=== PATIENT | female | born 1935 | race Two or more races ===

== ENCOUNTER 2016-06-12 20:45 | Inpatient (IN) | payer MEDICARE, MEDICAID ==
[~2016-06-12] VITALS: Ht 153 cm; Wt 52.2 kg
--- NOTE | 2016-06-12 20:53 | Emergency Room Report ---
History of Present Illness General Chief Complaint: Generalized Weakness Source: Patient, EMS Present Illness HPI The patient presents with generalized weakness. She was seen by her doctor yesterday with hematuria. He wanted her to go to the hospital at that time. She did have a fevers and chills. She refused to the hospital. No antibiotics were prescribed. The patient has more weakness at this time and is agreeable to go to the hospital. She denies any vomiting or diarrhea. She's had no cough, no rashes. No joint pain. No trauma. No depression. Some L sided headache. No change in vision. Pain 10/10, aching, not radiate, constant. She does not take any medications at home. Allergies: Coded Allergies: No Known Allergies (Unverified , 06/12/16) Patient History Past Medical History: see triage record Social History Narrative from home Now: No Reviewed Nursing Documentation: PMH: Agreed, PSxH: Agreed Nursing Documentation-PMH Past Medical History: No Stated History Review of Systems All Other Systems: negative except mentioned in HPI Physical Exam Vital Signs Date Time Temp Pulse Resp B/P Pulse Ox O2 Delivery O2 Flow Rate FiO2 06/12/16 20:40 99.9 102 16 115/66 96 Room Air Sp02 EP Interpretation: reviewed, normal General Appearance: well appearing, no apparent distress, alert - eyes closed but follows commands and speech normal (GCS = 14), other - hot to touch Head: normocephalic Eyes: bilateral eye EOMI, bilateral eye PERRL, bilateral eye normal inspection ENT: moist mucus membranes Neck: supple Respiratory: lungs clear, normal breath sounds Cardiovascular #1: regular rate, rhythm Cardiovascular #2: 2+ radial (R) Gastrointestinal: normal inspection, normal bowel sounds, non tender, no mass, non-distended Genitourinary: no CVA tenderness Musculoskeletal: back normal, gait/station normal, normal range of motion Neurologic: alert, oriented x3, motor strength/tone normal, DTRs symmetric, sensory intact, other - eyes closed Psychiatric: mood/affect normal Skin: normal inspection, warm/dry Medical Decision Making Diagnostic Impression: Primary Impression: sepsis from urinary source Additional Impressions: Hyponatremia Renal insufficiency ER Course The patient presents with fever weakness and hematuria. Differential includes pyelonephritis, UTI, renal stones, diverticulitis and was others. She has no upper respiratory symptomatology. The patient needs urgent evaluation and treatment for possible sepsis. Labs including blood culture, lactates, CBC and CMP we obtained. Young will be established. The patient Tylenol for the fever. In addition she was given a fluid bolus and antibiotics will be started. The fact that the patient is weak and unable to ambulate she is admitted to the hospital. Improved with fluids and fever control. C/O SHELLEY. Non-focal neuro. C/O headache L sided (states several days). Treated with fentanyl with improvement. Sodium low. Leukocytosis and pyuria. Renal insufficiency, Admit med Dr. Hauser. Laboratory Tests Test 06/12/16 21:00 06/12/16 21:15 White Blood Count 25.2 K/UL (4.8-10.8) *H Red Blood Count 3.86 M/UL (4.20-5.40) L Hemoglobin 11.1 G/DL (12.0-16.0) L Hematocrit 33.2 % (37.0-47.0) L Mean Corpuscular Volume 86 FL (80-99) Mean Corpuscular Hemoglobin 28.9 PG (27.0-31.0) Mean Corpuscular Hemoglobin Concent 33.5 G/DL (32.0-36.0) Red Cell Distribution Width 12.1 % (11.6-14.8) Platelet Count 261 K/UL (150-450) Mean Platelet Volume 6.2 FL (6.5-10.1) L Neutrophils (%) (Auto) % (45.0-75.0) Lymphocytes (%) (Auto) % (20.0-45.0) Monocytes (%) (Auto) % (1.0-10.0) Eosinophils (%) (Auto) % (0.0-3.0) Basophils (%) (Auto) % (0.0-2.0) Differential Total Cells Counted 100 Neutrophils % (Manual) 74 % (45-75) Lymphocytes % (Manual) 7 % (20-45) L Monocytes % (Manual) 10 % (1-10) Eosinophils % (Manual) 0 % (0-3) Basophils % (Manual) 0 % (0-2) Band Neutrophils 9 % (0-8) H Platelet Estimate Adequate Platelet Morphology Normal Red Blood Cell Morphology Normal Prothrombin Time 10.7 SEC (9.30-11.50) Prothrombin Time INR 1.1 (0.9-1.1) PTT 33 SEC (23-33) Sodium Level 123 mEQ/L (135-145) L Potassium Level 3.2 mEQ/L (3.4-4.9) L Chloride Level 83 mEQ/L (98-107) L Carbon Dioxide Level 19 mEQ/L (20-30) L Anion Gap 21 (5-15) H Blood Urea Nitrogen 25 mg/dL (7-23) H Creatinine 1.3 mg/dL (0.5-0.9) H Estimate Glomerular Filtration Rate mL/min (>60) Glucose Level 129 mg/dL (74-106) H Lactic Acid Level 0.90 mmol/L (0.66-2.22) Calcium Level 8.7 mg/dL (8.6-10.2) Total Bilirubin 0.4 mg/dL (0.0-1.2) Aspartate Amino Transferase (AST) 24 U/L (5-40) Alanine Aminotransferase (ALT) 14 U/L (3-33) Alkaline Phosphatase 212 U/L (35-104) H Total Creatine Kinase 37 U/L (26-140) Troponin I < 0.30 ng/mL (<=0.30) Pro-B-Type Natriuretic Peptide 1406 pg/mL (0-450) H Total Protein 6.5 g/dL (6.6-8.7) L Albumin 2.9 g/dL (3.5-5.2) L Globulin 3.6 g/dL Albumin/Globulin Ratio 0.8 (1.0-2.7) L Urine Color Pale yellow Urine Appearance Slightly cloudy Urine pH 6 (4.5-8.0) Urine Specific [place] 1.005 (1.005-1.035) Urine Protein 3+ (NEGATIVE) H Urine Glucose (UA) Negative (NEGATIVE) Urine Ketones 1+ (NEGATIVE) H Urine Occult Blood 4+ (NEGATIVE) H Urine Nitrite Negative (NEGATIVE) Urine Bilirubin Negative (NEGATIVE) Urine Urobilinogen Normal MG/DL (0.0-1.0) Urine Leukocyte Esterase 3+ (NEGATIVE) H Urine RBC 2-4 /HPF (0 - 2) H Urine WBC Tntc /HPF (0 - 2) H Urine Squamous Epithelial Cells None /LPF (NONE/OCC) Urine Bacteria Many /HPF (NONE) H EKG Diagnostic Results Rate: normal Rhythm: NSR ST Segments: no acute changes Rhythm Strip Diag. Results EP Interpretation: yes Rhythm: NSR, no PVC's, no ectopy Chest X-Ray Diagnostic Results EP Interpretation: Yes Findings: no consolidation, no effusion, no pneumothorax, no acute cardiopulmonary disease Number of Views: 1 Last Vital Signs Date Time Temp Pulse Resp B/P Pulse Ox O2 Delivery O2 Flow Rate FiO2 06/13/16 04:00 97.3 67 19 87/52 97 Room Air 06/13/16 01:25 2.0 Status: improved Disposition: ADMITTED INPATIENT Condition: Serious Michael Vázquez M.D. Jun 12, 2016 20:52
[2016-06-12] MEDS ORDERED: Cefepime HCl 1 GM in NS 55 ML IV SCH (21:00)
[2016-06-12] MEDS ORDERED: NS 1000ml 1,600 ML IVLG ONE (21:00)
[2016-06-12 21:23] LABS: MEAN CORPUSCULAR HEMOGLOBIN 28.9 PG (27.0-31.0); MEAN CORPUSCULAR HGB CONC 33.5 G/DL (32.0-36.0); MEAN CORPUSCULAR VOLUME 86 FL (80-99); MEAN PLATELET VOLUME 6.2 FL (6.5-10.1); PLATELET COUNT 261 K/UL (150-450); RED BLOOD COUNT 3.86 M/UL (4.20-5.40); RED CELL DISTRIBUTION WIDTH 12.1 % (11.6-14.8)
[2016-06-12] MEDS ORDERED: Zosyn 4.5gm inj ONE (21:23)
[2016-06-12] MEDS ORDERED: Cefepime 1gm vial ONE (21:24)
[2016-06-12 21:29] LABS: WHITE BLOOD COUNT 25.2 K/UL (4.8-10.8)
[2016-06-12 21:32] LABS: APPEARANCE,URINE SLIGHTLY CLOUDY; KETONES,URINE 1+ (NEGATIVE); LEUKOCYTE ESTERASE ,URINE 3+ (NEGATIVE); NITRITE,URINE NEGATIVE (NEGATIVE); PH,URINE 6 (4.5-8.0); PROTEIN,URINE 3+ (NEGATIVE); UROBILINOGEN,URINE NORMAL MG/DL (0.0-1.0)
[2016-06-12 21:36] LABS: INR 1.1 (0.9-1.1); PROTHROMBIN TIME 10.7 SEC (9.30-11.50)
[2016-06-12 21:40] LABS: BACTERIA,URINE MANY /HPF; WBC,URINE TNTC /HPF (0 - 2)
[2016-06-12 21:45] LABS: ALANINE AMINOTRANSFERASE 14 U/L (3-33); ALBUMIN/GLOBULIN RATIO 0.8 (1.0-2.7); ASPARTATE AMINO TRANSFERASE 24 U/L (5-40); CALCIUM 8.7 mg/dL (8.6-10.2); CARBON DIOXIDE 19 mEQ/L (20-30); CREATININE 1.3 mg/dL (0.5-0.9); HEMOLYSIS 3; TOTAL PROTEIN 6.5 g/dL (6.6-8.7)
[2016-06-12 21:46] LABS: ANION GAP 21 (5-15); CHLORIDE 83 mEQ/L (98-107); POTASSIUM 3.2 mEQ/L (3.4-4.9); SODIUM 123 mEQ/L (135-145)
[2016-06-12] MEDS ORDERED: Piperacillin/Tazobactam 4.5 GM in NS 110 ML IV SCH (22:00)
[2016-06-12 22:19] LABS: BAND NEUTROPHILS % (MANUAL) 9 % (0-8); LYMPHOCYTES % (MANUAL) 7 % (20-45); NEUTROPHILS % (MANUAL) 74 % (45-75); TOTAL CELLS COUNTED 100
[2016-06-12 22:21] LABS: BASOPHILS % (MANUAL) 0 % (0-2); EOSINOPHILS % (MANUAL) 0 % (0-3); PLATELET ESTIMATE ADEQUATE
[2016-06-12 22:22] LABS: PLATELET MORPHOLOGY NORMAL
[2016-06-12 22:27] VITALS: BP 108/48
[2016-06-12] MEDS ORDERED: fentaNYL 100 mcg/2 mL IV ONE (22:30)
[2016-06-12 22:55] LABS: TROPONIN I < 0.30 ng/mL (<=0.30)
[2016-06-12 23:37] VITALS: BP 88/48
[2016-06-12] MEDS ORDERED: TYLENOL650 MG/20. ORAL (23:58)
[2016-06-12] MEDS ORDERED: EXCEDRIN MIGRA1 EAC1 PO (23:58)
[2016-06-13] VITALS (7 sets, daily range): BP systolic 85–120; BP diastolic 50–70
[2016-06-13] MEDS ORDERED: DuoNeb 0.5-3(2.5)mg/3ml neb HHN PRN (07:00)
[2016-06-13] MEDS ORDERED: Miralax 17gm pkt ORAL PRN (07:00)
[2016-06-13] MEDS ORDERED: Nitroglycerin Subl 0.4mg tab (Bottle Of 25) SL PRN (07:00)
[2016-06-13] MEDS ORDERED: Cefepime HCl 2 GM in D5W 110 ML IV SCH (09:00)
[2016-06-13] MEDS ORDERED: Vancomycin 1 GM in D5W 275 ML IVPB ONE (09:00)
[2016-06-13] MEDS: Heparin 5000 units/ml inj SUBQ SCH ×2 (09:42→21:56)
--- NOTE | 2016-06-13 10:08 | Diagnostic Imaging Report ---
Indication: Shortness of breath Technique: XRAY CHEST 1 V Comparison: None Findings: Cardiomediastinal silhouette is within normal limits. Linear opacities are noted in the lung bases. There is mild elevation of the right hemidiaphragm. Degenerative changes of the spine are seen. Impression: Mild elevation of right hemidiaphragm. Linear lung base opacities probably representing atelectasis. Clinical correlation/followup recommended.
[2016-06-13 10:25] LABS: THYROID STIMULATING HORMONE 0.675 uIU/mL (0.300-4.500)
[2016-06-13 10:49] LABS: FREE T3 1.2 pg/mL (2.3-4.2)
--- NOTE | 2016-06-13 11:55 | Consultation ---
History of Present Illness General Date patient seen: Jun 13, 2016 Time patient seen: 11:00 Chief Complaint: Generalized Weakness Referring physician: dr Hauser Reason for Consultation: medical management Present Illness HPI 80 y/old female presented with generalized weakness. She was seen by her doctor with hematuria, who advised her to go to the hospital, but the patient refused.. Reported subjective fevers /chills. No antibiotics were prescribed. The patient progressively became more weak ad decided to come to ED for evalaution in ED with low grade fever, mild tachycardia pulse oximetry stable on RA Lab work up in ED revealed leukocytosis -25.2, alctic acid WNL renal insufficiency 25/1.3 Na-123 K-3,2 pro BNP 1406 CXR Mild elevation of right hemidiaphragm. Linear lung base opacities probably representing atelectasis. ECG with NSR patient was admitted for further management Allergies: Coded Allergies: No Known Allergies (Unverified , 06/12/16) Medication History Scheduled PRN Acetaminophen (Acetaminophen), 650 MG ORAL Q6H PRN for Prn Headache/Temp > 101, (Reported) Miscellaneous Medications Aspirin/Acetaminophen/Caffeine (Excedrin Migraine Caplet), 1 EACH PO, (Reported) Patient History Healthcare decision maker Resuscitation status Full Code Advanced Directive on File Past Medical/Surgical History Past Medical/Surgical History: (1) Headache Review of Systems Constitutional: Reports: fever, weakness Eye: Reports: no symptoms ENT: Reports: no symptoms Respiratory: Reports: no symptoms Cardiovascular: Reports: no symptoms Gastrointestinal: Reports: abdominal pain Genitourinary: Reports: see HPI Musculoskeletal: Reports: no symptoms Skin: Reports: no symptoms Psychiatric: Reports: no symptoms Neurological: Reports: headache Endocrine: Reports: no symptoms Hematologic/Lymphatic: Reports: no symptoms Physical Exam General Appearance: no apparent distress, alert - awake, responsive, [place] Citizen speaking female Lines, tubes and drains: peripheral HEENT: normocephalic, atraumatic, anicteric Neck: non-tender, supple Respiratory/Chest: lungs clear, no respiratory distress, no accessory muscle use Cardiovascular/Chest: normal rate, regular rhythm, no JVD Abdomen: normal bowel sounds, non tender, soft Skin Exam: warm/dry Neurologic: no motor/sensory deficits, alert, responsive, normal mood/affect Musculoskeletal: atrophy - BLE Last 24 Hour Vital Signs Date Time Temp Pulse Resp B/P Pulse Ox O2 Delivery O2 Flow Rate FiO2 06/13/16 10:40 97.3 06/13/16 04:00 97.3 67 19 87/52 97 Room Air 06/13/16 02:01 97.3 69 19 85/53 98 Nasal Cannula 06/13/16 01:25 98.6 70 19 92/50 97 Nasal Cannula 2.0 06/13/16 01:01 98.6 70 19 92/50 97 Nasal Cannula 2.0 06/12/16 23:37 99.2 79 20 88/48 97 Nasal Cannula 2.0 06/12/16 23:14 99.2 06/12/16 22:27 99.4 89 19 108/48 97 Room Air 06/12/16 22:24 99.4 06/12/16 21:08 100.6 06/12/16 20:40 99.9 102 16 115/66 96 Room Air Intake and Output 06/12/16 06/13/16 19:00 07:00 Intake Total 2765 ml Output Total 150 ml Balance 2615 ml Intake IV Total 2765 ml Output Urine Total 150 ml Laboratory Tests Test 06/12/16 21:00 06/12/16 21:15 06/13/16 08:50 White Blood Count 25.2 K/UL (4.8-10.8) *H Red Blood Count 3.86 M/UL (4.20-5.40) L Hemoglobin 11.1 G/DL (12.0-16.0) L Hematocrit 33.2 % (37.0-47.0) L Mean Corpuscular Volume 86 FL (80-99) Mean Corpuscular Hemoglobin 28.9 PG (27.0-31.0) Mean Corpuscular Hemoglobin Concent 33.5 G/DL (32.0-36.0) Red Cell Distribution Width 12.1 % (11.6-14.8) Platelet Count 261 K/UL (150-450) Mean Platelet Volume 6.2 FL (6.5-10.1) L Neutrophils (%) (Auto) % (45.0-75.0) Lymphocytes (%) (Auto) % (20.0-45.0) Monocytes (%) (Auto) % (1.0-10.0) Eosinophils (%) (Auto) % (0.0-3.0) Basophils (%) (Auto) % (0.0-2.0) Differential Total Cells Counted 100 Neutrophils % (Manual) 74 % (45-75) Lymphocytes % (Manual) 7 % (20-45) L Monocytes % (Manual) 10 % (1-10) Eosinophils % (Manual) 0 % (0-3) Basophils % (Manual) 0 % (0-2) Band Neutrophils 9 % (0-8) H Platelet Estimate Adequate Platelet Morphology Normal Red Blood Cell Morphology Normal Prothrombin Time 10.7 SEC (9.30-11.50) Prothromb Time International Ratio 1.1 (0.9-1.1) Activated Partial Thromboplast Time 33 SEC (23-33) Sodium Level 123 mEQ/L (135-145) L Potassium Level 3.2 mEQ/L (3.4-4.9) L Chloride Level 83 mEQ/L (98-107) L Carbon Dioxide Level 19 mEQ/L (20-30) L Anion Gap 21 (5-15) H Blood Urea Nitrogen 25 mg/dL (7-23) H Creatinine 1.3 mg/dL (0.5-0.9) H Estimat Glomerular Filtration Rate mL/min (>60) Glucose Level 129 mg/dL (74-106) H Lactic Acid Level 0.90 mmol/L (0.66-2.22) Calcium Level 8.7 mg/dL (8.6-10.2) Total Bilirubin 0.4 mg/dL (0.0-1.2) Aspartate Amino Transf (AST/SGOT) 24 U/L (5-40) Alanine Aminotransferase (ALT/SGPT) 14 U/L (3-33) Alkaline Phosphatase 212 U/L (35-104) H Total Creatine Kinase 37 U/L (26-140) Troponin I < 0.30 ng/mL (<=0.30) Pro-B-Type Natriuretic Peptide 1406 pg/mL (0-450) H Total Protein 6.5 g/dL (6.6-8.7) L Albumin 2.9 g/dL (3.5-5.2) L Globulin 3.6 g/dL Albumin/Globulin Ratio 0.8 (1.0-2.7) L Urine Color Pale yellow Urine Appearance Slightly cloudy Urine pH 6 (4.5-8.0) Urine Specific [place] 1.005 (1.005-1.035) Urine Protein 3+ (NEGATIVE) H Urine Glucose (UA) Negative (NEGATIVE) Urine Ketones 1+ (NEGATIVE) H Urine Occult Blood 4+ (NEGATIVE) H Urine Nitrite Negative (NEGATIVE) Urine Bilirubin Negative (NEGATIVE) Urine Urobilinogen Normal MG/DL (0.0-1.0) Urine Leukocyte Esterase 3+ (NEGATIVE) H Urine RBC 2-4 /HPF (0 - 2) H Urine WBC Tntc /HPF (0 - 2) H Urine Squamous Epithelial Cells None /LPF (NONE/OCC) Urine Bacteria Many /HPF (NONE) H Plasma/Serum Osmolality Pending Uric Acid 4.0 mg/dL (3.0-7.5) Thyroid Stimulating Hormone (TSH) 0.675 uIU/mL (0.300-4.500) Free Thyroxine 1.13 ng/dL (0.86-1.85) Free Triiodothyronine 1.2 pg/mL (2.3-4.2) L Cortisol Pending Microbiology Date/Time Source Procedure Growth Status 06/12/16 21:15 Indwelling Cath Urine Culture - Preliminary Gram Negative Johnathon Resulted Height (Feet): 5 Height (Inches): 0.25 Weight (Pounds): 115 Medications Current Medications Medications (Trade) Dose Ordered Sig/Joseline Route PRN Reason Start Time Stop Time Status Last Admin Dose Admin Acetaminophen (Tylenol) 650 mg Q4H PRN ORAL fever 06/13/16 07:00 07/13/16 06:59 06/13/16 09:41 Albuterol/ Ipratropium (DuoNeb 0.5-3(2.5)mg/3ml) 3 ml Q4H PRN HHN Shortness of Breath 06/13/16 07:00 06/18/16 06:59 Cefepime HCl/ Dextrose (Maxipime/D5W) 55 ml @ 110 mls/hr Q24H IVPB 06/13/16 21:00 06/20/16 20:59 Heparin Sodium (Porcine) (Heparin 5000 units/ml) 5,000 units EVERY 12 HOURS SUBQ 06/13/16 09:00 07/13/16 08:59 06/13/16 09:42 Morphine Sulfate (Morphine Sulfate) 2 mg Q4H PRN IVP Moderate Pain (Pain Scale 4-6) 06/13/16 07:00 06/20/16 06:59 Nitroglycerin 0.4 mg 0.4 mg Q5M PRN SL Prn Chest Pain 06/13/16 07:00 07/13/16 06:59 Ondansetron HCl (Zofran) 4 mg Q6H PRN IVP Nausea & Vomiting 06/13/16 07:00 07/13/16 06:59 Polyethylene Glycol (Miralax) 17 gm DAILYPRN PRN ORAL Constipation 06/13/16 07:00 07/13/16 06:59 Potassium Chloride 20 meq/ Sodium Chloride 1,010 ml @ 50 mls/hr [id number] IV 06/13/16 08:00 07/13/16 07:59 06/13/16 08:29 Temazepam (Restoril) 15 mg HSPRN PRN ORAL Insomnia 06/13/16 07:00 06/20/16 06:59 Vancomycin HCl 1 ea 1 ea DAILY PRN MISC PER RX PROTOCOL 06/13/16 07:30 07/13/16 07:29 Vancomycin HCl/ Dextrose (Vancomycin/D5W) 110 ml @ 110 mls/hr Q24H IVPB 06/14/16 09:00 06/19/16 08:59 Assessment/Plan Assessment/Plan ASSESSMENT sepsis UTI acute renal failure /ATN ( possibly due to dehydartion, vs sepsis, likely prerenal) acute hypo Na hypokalemia hematuria mild anemia PLAN OF CARE [facility] floor IVF empiric abx fup with cx urine cx + GNR, blood cx pending no further hematuria hyponatremia workup IVF with NS, monitor renal parameters renal US K replaced , check Mg monitor HH, for any trend down DVT, GI prophylaxis bowel regimen pain management case discussed and evaluated by supervising physician Jose G Antoine)Elly NP Jun 13, 2016 11:55
[2016-06-13] MEDS ORDERED: NS w/KCl 20mEq 1,000 ML IV SCH (12:30)
[2016-06-13 13:53] LABS: ANION GAP 18 (5-15); CARBON DIOXIDE 16 mEQ/L (20-30); CHLORIDE 97 mEQ/L (98-107); CREATININE 1.1 mg/dL (0.5-0.9); SODIUM 131 mEQ/L (135-145)
[2016-06-13 13:54] LABS: CALCIUM 7.4 mg/dL (8.6-10.2); HEMOLYSIS 15
--- NOTE | 2016-06-13 14:34 | History & Physical ---
History and Physical History & Physicial Dictated for Int Med-Dr Hauser no [id number]. LEONOR CHRISTIANSON Jun 13, 2016 14:34
[2016-06-13] MEDS: Cefepime 1gm/D5W 55ml IVPB SCH ×2 (21:54)
--- NOTE | 2016-06-13 22:38 | History and Physical Report ---
DATE OF ADMISSION: 06/12/2016 ATTENDING PHYSICIAN: Mati Hauser M.D. CHIEF COMPLAINT: The patient is an 80-year-old female presents with complaint of burning on urination. HISTORY OF PRESENT ILLNESS: It began approximately one week ago. The patient began to experience pain on urination. The patient also states her urine had a foul odor. The patient went to her private physician yesterday, June 12, 2016. The patient was complaining of headache, fever and chills at that time. The patient was told to go to the emergency room. The patient refused to go to the hospital. Last evening, the patient began to experience high fevers. The patient presented to [facility]. The patient was found to have leukocytosis with urinary tract infection. The patient is admitted for urinary tract infection and probable pyelonephritis. PAST MEDICAL HISTORY: The patient denies. PAST SURGICAL HISTORY: The patient denies. CURRENT MEDICATIONS: [id number] Excedrin. ALLERGIES: No known drug allergies. SOCIAL HISTORY: The patient lives alone. The patient is a . The patient denies tobacco or alcohol use. PHYSICAL EXAMINATION: VITAL SIGNS: Temperature 99.2, respirations 20, pulse 79, and blood pressure decreased to 88/48. GENERAL: The patient is a well-developed and well-nourished elderly female, in no apparent distress. HEENT: Eyes, pupils are equal and responsive to light and accommodation. Extraocular movements are intact. NECK: Supple without lymphadenopathy. CHEST: Lungs are clear to auscultation bilaterally without wheezes or rales. CARDIOVASCULAR: Regular rhythm and rate. S1 and S2 normal without murmurs, rubs, or gallops. ABDOMEN: Soft, nontender, and nondistended. Positive bowel sounds. No evidence of hepatosplenomegaly. Currently, no rebound or guarding noted. EXTREMITIES: Negative for clubbing, cyanosis, or edema. RECTAL: Refused. GENITALIA: Refused. NEUROLOGIC: Cranial nerves II through XII are grossly intact without focal deficits. Motor strength is 5/5 bilaterally. Deep tendon reflexes are 2+ plantar. LABORATORY STUDIES: WBC 25.2, hemoglobin 11.1, hematocrit 32.2, and platelets 261,000. Sodium 131, potassium 3.0, chloride 97, CO2 16, BUN 19, and creatinine 1.1. Glucose 182. Urinalysis showed 3+ protein, 1+ ketones, 4+ occult blood, 3+ leukocyte esterase, and wbc's too numerous to count. ASSESSMENT: This is an 80-year-old, female: 1. Urinary tract infection. 2. Dysuria. 3. Pyelonephritis. 4. Leukocytosis. 5. Fever with chills. TREATMENT: 1. Urinary tract infection. The patient has been placed empirically on vancomycin and cefepime. Urine culture is pending. Urine culture preliminarily shows gram-negative adithya. Await ID and sensitivity. 2. Dysuria. This is secondary to urinary tract infection as above. 3. Leukocytosis secondary to pyelonephritis and urinary tract infection. 4. Fever with chills. 5. Hypotension. The patient has probable sepsis. Cruz Colby M.D. DR: ELIZABETH JOB#: [id number] CC:
[2016-06-14] VITALS: BP 121/63
[2016-06-14 04:00] VITALS: BP 120/53
[2016-06-14 07:35] LABS: BASOPHILS % (AUTO) 0.7 % (0.0-2.0); EOSINOPHILS % (AUTO) 0.3 % (0.0-3.0); LYMPHOCYTES % (AUTO) 8.5 % (20.0-45.0); MEAN CORPUSCULAR HEMOGLOBIN 28.9 PG (27.0-31.0); MEAN CORPUSCULAR HGB CONC 33.3 G/DL (32.0-36.0); MEAN CORPUSCULAR VOLUME 87 FL (80-99); MEAN PLATELET VOLUME 5.8 FL (6.5-10.1); NEUTROPHILS % (AUTO) 79.5 % (45.0-75.0); PLATELET COUNT 287 K/UL (150-450); RED BLOOD COUNT 3.47 M/UL (4.20-5.40); RED CELL DISTRIBUTION WIDTH 12.8 % (11.6-14.8); WHITE BLOOD COUNT 15.6 K/UL (4.8-10.8)
[2016-06-14 07:53] LABS: ALANINE AMINOTRANSFERASE 10 U/L (3-33); ALBUMIN/GLOBULIN RATIO 0.6 (1.0-2.7); ANION GAP 16 (5-15); ASPARTATE AMINO TRANSFERASE 17 U/L (5-40); CARBON DIOXIDE 16 mEQ/L (20-30); CHLORIDE 101 mEQ/L (98-107); CREATININE 0.9 mg/dL (0.5-0.9); HEMOLYSIS 0; POTASSIUM 3.7 mEQ/L (3.4-4.9); SODIUM 133 mEQ/L (135-145)
[2016-06-14 08:00] VITALS: BP 110/61
[2016-06-14 08:08] LABS: CORTISOL LC 21.4 ug/dL (.)
[2016-06-14] MEDS ORDERED: Vancomycin 500mg/D5W 110ml IVPB SCH ×2 (09:00)
[2016-06-14] MEDS: Heparin 5000 units/ml inj SUBQ SCH ×2 (09:34→20:46)
[2016-06-14 12:00] VITALS: BP 123/71
--- NOTE | 2016-06-14 12:32 | Pulmonology Progress Note ---
Assessment/Plan Assessment/Plan ASSESSMENT sepsis with bacteremai ( gram megative), likely urinary source UTI acute renal failure /ATN ( possibly due to dehydration, vs sepsis, likely prerenal) acute hypo Na hypokalemia hematuria mild anemia PLAN OF CARE [facility] floor IVF abx urine cx + E coli, blood cx + GNR no further hematuria hyponatremia workup noted Na up to 133, likely depletional, IVF with NS for 1 more day, monitor renal parameter, creat down to normal renal US K replaced , stable, replace Mg monitor HH, for any trend down DVT, GI prophylaxis bowel regimen pain management case discussed and evaluated by supervising physician Subjective Allergies: Coded Allergies: No Known Allergies (Unverified , 06/12/16) Objective Last 24 Hour Vital Signs Date Time Temp Pulse Resp B/P Pulse Ox O2 Delivery O2 Flow Rate FiO2 06/14/16 08:00 99.5 75 16 110/61 98 Room Air 06/14/16 04:00 98.4 73 20 120/53 97 Room Air 06/14/16 00:00 97.9 77 18 121/63 100 06/13/16 20:00 97.5 71 18 100/62 98 Nasal Cannula 2.0 06/13/16 16:00 97.0 67 18 98/52 98 Nasal Cannula 2.0 Intake and Output 06/13/16 06/14/16 19:00 07:00 Intake Total 1075 ml 1150 ml Output Total 1300 ml 1975 ml Balance -225 ml -825 ml Intake Oral 700 ml 320 ml IV Total 375 ml 830 ml Output Urine Total 1300 ml 1975 ml Objective General Appearance: no apparent distress, alert - awake, responsive, [place] speaking female Lines, tubes and drains: peripheral HEENT: normocephalic, atraumatic, anicteric Neck: non-tender, supple Respiratory/Chest: lungs clear, no respiratory distress, no accessory muscle use Cardiovascular/Chest: normal rate, regular rhythm, no JVD Abdomen: normal bowel sounds, non tender, soft Skin Exam: warm/dry Neurologic: no motor/sensory deficits, alert, responsive, normal mood/affect Musculoskeletal: atrophy - BLE Microbiology Date/Time Source Procedure Growth Status 06/12/16 21:00 Blood Blood Culture - Preliminary Gram Negative Johnathon Resulted 06/12/16 20:55 Blood Blood Culture - Preliminary Gram Negative Johnathon Resulted 06/12/16 21:15 Indwelling Cath Urine Culture - Final Escherichia Coli Complete Laboratory Tests 06/13/16 13:25: Sodium Level 131L, Potassium Level 3.0L, Chloride Level 97L, Carbon Dioxide Level 16L, Anion Gap 18H, Blood Urea Nitrogen 19, Creatinine 1.1H, Estimat Glomerular Filtration Rate , Glucose Level 182H, Calcium Level 7.4L 06/14/16 05:05: Sodium Level 133L, Potassium Level 3.7, Chloride Level 101, Carbon Dioxide Level 16L, Anion Gap 16H, Blood Urea Nitrogen 13, Creatinine 0.9, Estimat Glomerular Filtration Rate , Glucose Level 101, Calcium Level 8.0L, White Blood Count 15.6H, Red Blood Count 3.47L, Hemoglobin 10.0L, Hematocrit 30.1L, Mean Corpuscular Volume 87, Mean Corpuscular Hemoglobin 28.9, Mean Corpuscular Hemoglobin Concent 33.3, Red Cell Distribution Width 12.8, Platelet Count 287, Mean Platelet Volume 5.8L, Neutrophils (%) (Auto) 79.5H, Lymphocytes (%) (Auto) 8.5L, Monocytes (%) (Auto) 11.0H, Eosinophils (%) (Auto) 0.3, Basophils (%) ( Auto) 0.7, Magnesium Level 1.6L, Total Bilirubin 0.3, Aspartate Amino Transf ( AST/SGOT) 17, Alanine Aminotransferase (ALT/SGPT) 10, Alkaline Phosphatase 160H , Total Protein 5.0L, Albumin 1.9L, Globulin 3.1, Albumin/Globulin Ratio 0.6L Current Medications Medications (Trade) Dose Ordered Sig/Joseline Route PRN Reason Start Time Stop Time Status Last Admin Dose Admin Acetaminophen (Tylenol) 650 mg Q4H PRN ORAL fever 06/13/16 07:00 07/13/16 06:59 06/13/16 09:41 Albuterol/ Ipratropium (DuoNeb 0.5-3(2.5)mg/3ml) 3 ml Q4H PRN HHN Shortness of Breath 06/13/16 07:00 06/18/16 06:59 Cefepime HCl/ Dextrose (Maxipime/D5W) 55 ml @ 110 mls/hr Q24H IVPB 06/13/16 21:00 06/20/16 20:59 06/13/16 21:54 Heparin Sodium (Porcine) (Heparin 5000 units/ml) 5,000 units EVERY 12 HOURS SUBQ 06/13/16 09:00 07/13/16 08:59 06/14/16 09:34 Morphine Sulfate (Morphine Sulfate) 2 mg Q4H PRN IVP Moderate Pain (Pain Scale 4-6) 06/13/16 07:00 06/20/16 06:59 Nitroglycerin 0.4 mg 0.4 mg Q5M PRN SL Prn Chest Pain 06/13/16 07:00 07/13/16 06:59 Ondansetron HCl (Zofran) 4 mg Q6H PRN IVP Nausea & Vomiting 06/13/16 07:00 07/13/16 06:59 Polyethylene Glycol (Miralax) 17 gm DAILYPRN PRN ORAL Constipation 06/13/16 07:00 07/13/16 06:59 Ranitidine HCl (Zantac) 150 mg BEDTIME ORAL 06/13/16 21:00 07/13/16 20:59 06/13/16 21:54 Sodium Chloride (Sodium Chloride 1000ml bag) 1,000 ml @ 75 mls/hr [id number] IV 06/13/16 12:00 07/13/16 11:59 06/14/16 07:06 Temazepam (Restoril) 15 mg HSPRN PRN ORAL Insomnia 06/13/16 07:00 06/20/16 06:59 Vancomycin HCl 500 mg/Dextrose 110 ml @ 110 mls/hr Q24H IVPB 06/14/16 09:00 06/19/16 08:59 06/14/16 09:33 Vancomycin HCl 1 ea 1 ea DAILY PRN MISC PER RX PROTOCOL 06/13/16 07:30 07/13/16 07:29 Elly Araiza NP (Vanchtein) Jun 14, 2016 12:32
--- NOTE | 2016-06-14 13:44 | Internal Med Progress Note ---
Subjective Date of Service: Jun 14, 2016 Physician Name Leonor Christianson Attending Physician Mati Hauser MD Current Medications Medications (Trade) Dose Ordered Sig/Joseline Route PRN Reason Start Time Stop Time Status Last Admin Dose Admin Acetaminophen (Tylenol) 650 mg Q4H PRN ORAL fever 06/13/16 07:00 07/13/16 06:59 06/13/16 09:41 Albuterol/ Ipratropium (DuoNeb 0.5-3(2.5)mg/3ml) 3 ml Q4H PRN HHN Shortness of Breath 06/13/16 07:00 06/18/16 06:59 Cefepime HCl 1 gm/ Dextrose 55 ml @ 110 mls/hr Q24H IVPB 06/13/16 21:00 06/20/16 20:59 06/13/16 21:54 Heparin Sodium (Porcine) (Heparin 5000 units/ml) 5,000 units EVERY 12 HOURS SUBQ 06/13/16 09:00 07/13/16 08:59 06/14/16 09:34 Morphine Sulfate (Morphine Sulfate) 2 mg Q4H PRN IVP Moderate Pain (Pain Scale 4-6) 06/13/16 07:00 06/20/16 06:59 Nitroglycerin 0.4 mg 0.4 mg Q5M PRN SL Prn Chest Pain 06/13/16 07:00 07/13/16 06:59 Ondansetron HCl (Zofran) 4 mg Q6H PRN IVP Nausea & Vomiting 06/13/16 07:00 07/13/16 06:59 Polyethylene Glycol (Miralax) 17 gm DAILYPRN PRN ORAL Constipation 06/13/16 07:00 07/13/16 06:59 Ranitidine HCl (Zantac) 150 mg BEDTIME ORAL 06/13/16 21:00 07/13/16 20:59 06/13/16 21:54 Sodium Chloride (Sodium Chloride 1000ml bag) 1,000 ml @ 75 mls/hr [id number] IV 06/13/16 12:00 07/13/16 11:59 06/14/16 07:06 Temazepam (Restoril) 15 mg HSPRN PRN ORAL Insomnia 06/13/16 07:00 06/20/16 06:59 Allergies: Coded Allergies: No Known Allergies (Unverified , 3/3/17) ROS Limited/Unobtainable: No Constitutional: Reports: no symptoms HEENT: Reports: no symptoms Cardiovascular: Reports: no symptoms Respiratory: Reports: no symptoms Gastrointestinal/Abdominal: Reports: no symptoms Genitourinary: Reports: no symptoms Neurologic/Psychiatric: Reports: no symptoms Subjective 80 YO F admitted with UTI. Cover for Int Joa[facility]-Dr Hauser. Objective Last Vital Signs Date Time Temp Pulse Resp B/P Pulse Ox O2 Delivery O2 Flow Rate FiO2 06/14/16 08:00 99.5 75 16 110/61 98 Room Air 06/13/16 20:00 2.0 06/13/16 12:00 94 General Appearance: WD/WN, no apparent distress, alert, thin EENT: PERRL/EOMI, normal ENT inspection, TMs normal Neck: non-tender, normal alignment, supple, normal inspection Cardiovascular: normal peripheral pulses, normal rate, regular rhythm, no gallop/murmur, no JVD Respiratory/Chest: chest wall non-tender, lungs clear, normal breath sounds, no respiratory distress, no accessory muscle use Abdomen: normal bowel sounds, non tender, soft, no organomegaly, no mass Extremities: normal range of motion Neurologic: critical care physician assistant II-XII grossly normal, no motor/sensory deficits Skin: normal pigmentation, warm/dry Laboratory Tests Test 06/14/16 05:05 White Blood Count 15.6 K/UL (4.8-10.8) H Red Blood Count 3.47 M/UL (4.20-5.40) L Hemoglobin 10.0 G/DL (12.0-16.0) L Hematocrit 30.1 % (37.0-47.0) L Mean Corpuscular Volume 87 FL (80-99) Mean Corpuscular Hemoglobin 28.9 PG (27.0-31.0) Mean Corpuscular Hemoglobin Concent 33.3 G/DL (32.0-36.0) Red Cell Distribution Width 12.8 % (11.6-14.8) Platelet Count 287 K/UL (150-450) Mean Platelet Volume 5.8 FL (6.5-10.1) L Neutrophils (%) (Auto) 79.5 % (45.0-75.0) H Lymphocytes (%) (Auto) 8.5 % (20.0-45.0) L Monocytes (%) (Auto) 11.0 % (1.0-10.0) H Eosinophils (%) (Auto) 0.3 % (0.0-3.0) Basophils (%) (Auto) 0.7 % (0.0-2.0) Sodium Level 133 mEQ/L (135-145) L Potassium Level 3.7 mEQ/L (3.4-4.9) Chloride Level 101 mEQ/L (98-107) Carbon Dioxide Level 16 mEQ/L (20-30) L Anion Gap 16 (5-15) H Blood Urea Nitrogen 13 mg/dL (7-23) Creatinine 0.9 mg/dL (0.5-0.9) Estimat Glomerular Filtration Rate mL/min (>60) Glucose Level 101 mg/dL (74-106) Calcium Level 8.0 mg/dL (8.6-10.2) L Magnesium Level 1.6 mg/dL (1.7-2.5) L Total Bilirubin 0.3 mg/dL (0.0-1.2) Aspartate Amino Transf (AST/SGOT) 17 U/L (5-40) Alanine Aminotransferase (ALT/SGPT) 10 U/L (3-33) Alkaline Phosphatase 160 U/L (35-104) H Total Protein 5.0 g/dL (6.6-8.7) L Albumin 1.9 g/dL (3.5-5.2) L Globulin 3.1 g/dL Albumin/Globulin Ratio 0.6 (1.0-2.7) L Microbiology Date/Time Source Procedure Growth Status 06/12/16 21:00 Blood Blood Culture - Preliminary Gram Negative Johnathon Resulted 06/12/16 20:55 Blood Blood Culture - Preliminary Gram Negative Johnathon Resulted 06/12/16 21:15 Indwelling Cath Urine Culture - Final Escherichia Coli Complete Intake and Output 06/13/16 06/14/16 19:00 07:00 Intake Total 1075 ml 1150 ml Output Total 1300 ml 1975 ml Balance -225 ml -825 ml Intake Oral 700 ml 320 ml IV Total 375 ml 830 ml Output Urine Total 1300 ml 1975 ml Assessment/Plan Problem List: (1) E coli infection Assessment & Plan: See UTI below (2) Pyelonephritis (3) Leukocytosis Assessment & Plan: Improving on antibiotic. (4) Fever chills (5) Hypotension (6) UTI (urinary tract infection) Assessment & Plan: E. Coli. Continue cefepime; D/C vanco (7) Sepsis Status: not improved LEONOR CHRISTIANSON Jun 14, 2016 13:44
[2016-06-14 16:00] VITALS: BP 124/68
[2016-06-14] MEDS: Morphine Sulfate 2mg/ml Inj IVP PRN (16:44)
[2016-06-14 20:03] VITALS: BP 117/60
[2016-06-14] MEDS: Cefepime 1gm/D5W 55ml IVPB SCH ×2 (20:45)
[2016-06-15] VITALS (7 sets, daily range): BP systolic 108–133; BP diastolic 58–72
--- NOTE | 2016-06-15 03:58 | Consultation ---
DATE OF CONSULTATION: 06/14/2016 INFECTIOUS DISEASE CONSULTATION This consult is for coverage of Dr. Moore. PRIMARY ATTENDING PHYSICIAN: Mati Hauser M.D. REASON FOR CONSULT: Gram-negative sepsis and UTI. HISTORY OF PRESENT ILLNESS: The patient is an 80-year-old female admitted on 06/12/2016 from home complaining of weakness. The patient has dysuria and hematuria. Before admission, the patient had visited primary doctor outside of the hospital. PAST MEDICAL HISTORY: Not significant. MEDICATIONS: Vancomycin, cefepime, ranitidine, sodium chloride, heparin, DuoNeb inhaler, morphine, MiraLax, Zofran, and nitroglycerin. ALLERGIES: No known drug allergies. SOCIAL HISTORY: . No history of alcohol, drug abuse, or smoking. REVIEW OF SYSTEMS: No nausea or vomiting. Has dysuria. PHYSICAL EXAMINATION: VITAL SIGNS: Temperature is 99.5 degrees, pulse 75, and blood pressure is 110/61. GENERAL APPEARANCE: No acute distress, awake, and alert. HEAD AND NECK: [place] conjunctivae. HEART: S1 and S2. Regular. LUNGS: Clear. ABDOMEN: Soft and nontender. EXTREMITIES: No significant edema. LABORATORY DATA: Sodium 133, potassium 3.7, chloride 101, bicarbonate 16, BUN 13, and creatinine 0.9. Glucose is 109. WBC at the time of admission was 25.2 coming down to 15.6, hemoglobin 10, hematocrit 30.1, and platelets is 87,000. Chest x-ray showed mild elevation of diaphragm on the right side. Blood culture is growing gram-negative rods and urine culture grew E. coli. IMPRESSION: 1. Gram-negative sepsis secondary to urinary tract infection. 2. Leukocytosis. 3. Anemia. RECOMMENDATIONS: Continue with cefepime and discontinue vancomycin. Abdominal ultrasound to rule out obstruction. At the end of my exam, I thank Dr. Hauser for involving me in the care of this patient. Zeus Browne M.D. DR: ZAY JOB#: [id number] CC:
[2016-06-15 07:22] LABS: BASOPHILS % (AUTO) 0.9 % (0.0-2.0); EOSINOPHILS % (AUTO) 0.8 % (0.0-3.0); LYMPHOCYTES % (AUTO) 11.2 % (20.0-45.0); MEAN CORPUSCULAR HEMOGLOBIN 28.9 PG (27.0-31.0); MEAN CORPUSCULAR HGB CONC 33.4 G/DL (32.0-36.0); MEAN CORPUSCULAR VOLUME 86 FL (80-99); MEAN PLATELET VOLUME 5.5 FL (6.5-10.1); MONOCYTES % (AUTO) 13.8 % (1.0-10.0); NEUTROPHILS % (AUTO) 73.2 % (45.0-75.0); PLATELET COUNT 317 K/UL (150-450); WHITE BLOOD COUNT 14.8 K/UL (4.8-10.8)
[2016-06-15 07:39] LABS: ANION GAP 16 (5-15); CARBON DIOXIDE 19 mEQ/L (20-30); CHLORIDE 99 mEQ/L (98-107); CREATININE 0.8 mg/dL (0.5-0.9); HEMOLYSIS 4; MAGNESIUM 1.9 mg/dL (1.7-2.5); POTASSIUM 3.3 mEQ/L (3.4-4.9); SODIUM 134 mEQ/L (135-145)
--- NOTE | 2016-06-15 07:55 | Diagnostic Imaging Report ---
Indication: Pain and renal failure Technique: Renal ultrasound Findings: The right kidney measures 11.5 cm in length. The left kidney measures 10.7 cm in length. Bilateral kidneys demonstrate normal echogenicity. No focal renal lesions are seen. There is no hydronephrosis. No sonographically evident stones are seen. The visualized portions of the inferior vena cava are unremarkable. Bladder is collapsed by Young catheter. Impression: Normal sonographic appearance of the bilateral kidneys. Young catheter.
[2016-06-15] MEDS: Heparin 5000 units/ml inj SUBQ SCH ×2 (08:03→21:09)
--- NOTE | 2016-06-15 09:45 | Infectious Diseases Prog Note ---
Assessment/Plan Assessment/Plan A: The patient is an 80-year-old UTI E Coli US : No obst SP dysuria and hematuria Bacteremia Sepsis improving Leucocytosis improving A: Continue with cefepime d# , upon DC will change to oral Keflex to complete the course Monitor CBC Monitor BMP Monitor cxray Monitor cultures Subjective Constitutional: Denies: anorexia, chills, drenching sweats, fatigue, fever, no symptoms, other Allergies: Coded Allergies: No Known Allergies (Unverified , 06/12/16) Objective Vital Signs Last 24 Hour Vital Signs Date Time Temp Pulse Resp B/P Pulse Ox O2 Delivery O2 Flow Rate FiO2 06/15/16 08:00 98.4 73 18 108/58 96 Nasal Cannula 2.0 06/15/16 04:00 98.6 76 18 123/72 95 Nasal Cannula 2.0 06/15/16 00:00 99.0 77 18 120/62 96 Nasal Cannula 2.0 06/14/16 20:03 99.5 71 18 117/60 98 Nasal Cannula 2.0 06/14/16 19:09 78 20 Nasal Cannula 2.0 28 06/14/16 19:09 97 Nasal Cannula 2.0 28 06/14/16 19:09 Nasal Cannula 2.0 28 06/14/16 16:00 97.5 75 18 124/68 97 Nasal Cannula 06/14/16 12:00 99.5 80 18 123/71 95 Room Air Height (Feet): 5 Height (Inches): 0.25 Weight (Pounds): 115 HEENT: anicteric Respiratory/Chest: normal breath sounds Cardiovascular: regularly irregular Abdomen: non distended Microbiology Date/Time Source Procedure Growth Status 06/12/16 21:00 Blood Blood Culture - Final Escherichia Coli Complete 06/12/16 20:55 Blood Blood Culture - Preliminary Gram Negative Johnathon Resulted 06/12/16 21:15 Indwelling Cath Urine Culture - Final Escherichia Coli Complete Laboratory Tests Test 06/15/16 04:50 White Blood Count 14.8 K/UL (4.8-10.8) H Red Blood Count 3.40 M/UL (4.20-5.40) L Hemoglobin 9.8 G/DL (12.0-16.0) L Hematocrit 29.4 % (37.0-47.0) L Mean Corpuscular Volume 86 FL (80-99) Mean Corpuscular Hemoglobin 28.9 PG (27.0-31.0) Mean Corpuscular Hemoglobin Concent 33.4 G/DL (32.0-36.0) Red Cell Distribution Width 13.0 % (11.6-14.8) Platelet Count 317 K/UL (150-450) Mean Platelet Volume 5.5 FL (6.5-10.1) L Neutrophils (%) (Auto) 73.2 % (45.0-75.0) Lymphocytes (%) (Auto) 11.2 % (20.0-45.0) L Monocytes (%) (Auto) 13.8 % (1.0-10.0) H Eosinophils (%) (Auto) 0.8 % (0.0-3.0) Basophils (%) (Auto) 0.9 % (0.0-2.0) Sodium Level 134 mEQ/L (135-145) L Potassium Level 3.3 mEQ/L (3.4-4.9) L Chloride Level 99 mEQ/L (98-107) Carbon Dioxide Level 19 mEQ/L (20-30) L Anion Gap 16 (5-15) H Blood Urea Nitrogen 9 mg/dL (7-23) Creatinine 0.8 mg/dL (0.5-0.9) Estimat Glomerular Filtration Rate mL/min (>60) Glucose Level 101 mg/dL (74-106) Calcium Level 8.0 mg/dL (8.6-10.2) L Magnesium Level 1.9 mg/dL (1.7-2.5) Current Medications Medications (Trade) Dose Ordered Sig/Joseline Route PRN Reason Start Time Stop Time Status Last Admin Dose Admin Acetaminophen (Tylenol) 650 mg Q4H PRN ORAL fever 06/13/16 07:00 07/13/16 06:59 06/13/16 09:41 Albuterol/ Ipratropium (DuoNeb 0.5-3(2.5)mg/3ml) 3 ml Q4H PRN HHN Shortness of Breath 06/13/16 07:00 06/18/16 06:59 Cefepime HCl 1 gm/ Dextrose 55 ml @ 110 mls/hr Q24H IVPB 06/13/16 21:00 06/20/16 20:59 06/14/16 20:45 Heparin Sodium (Porcine) (Heparin 5000 units/ml) 5,000 units EVERY 12 HOURS SUBQ 06/13/16 09:00 07/13/16 08:59 06/15/16 08:03 Morphine Sulfate (Morphine Sulfate) 2 mg Q4H PRN IVP Moderate Pain (Pain Scale 4-6) 06/13/16 07:00 06/20/16 06:59 06/14/16 16:44 Nitroglycerin 0.4 mg 0.4 mg Q5M PRN SL Prn Chest Pain 06/13/16 07:00 07/13/16 06:59 Ondansetron HCl (Zofran) 4 mg Q6H PRN IVP Nausea & Vomiting 06/13/16 07:00 07/13/16 06:59 Polyethylene Glycol (Miralax) 17 gm DAILYPRN PRN ORAL Constipation 06/13/16 07:00 07/13/16 06:59 Potassium Chloride (K-Dur) 40 meq ONCE ONCE ORAL 06/15/16 09:00 06/15/16 09:01 UNV Ranitidine HCl (Zantac) 150 mg BEDTIME ORAL 06/13/16 21:00 07/13/16 20:59 06/14/16 20:45 Sodium Chloride (Sodium Chloride 1000ml bag) 1,000 ml @ 75 mls/hr [id number] IV 06/13/16 12:00 07/13/16 11:59 06/15/16 00:48 Temazepam (Restoril) 15 mg HSPRN PRN ORAL Insomnia 06/13/16 07:00 06/20/16 06:59 EVELYN FISCHER M.D. Jun 15, 2016 09:45
--- NOTE | 2016-06-15 11:52 | Internal Med Progress Note ---
Subjective Date of Service: Jun 15, 2016 Physician Name Leonor Christianson Attending Physician Mati Hauser MD Current Medications Medications (Trade) Dose Ordered Sig/Joseline Route PRN Reason Start Time Stop Time Status Last Admin Dose Admin Acetaminophen (Tylenol) 650 mg Q4H PRN ORAL fever 06/13/16 07:00 07/13/16 06:59 06/13/16 09:41 Albuterol/ Ipratropium (DuoNeb 0.5-3(2.5)mg/3ml) 3 ml Q4H PRN HHN Shortness of Breath 06/13/16 07:00 06/18/16 06:59 Cefepime HCl 1 gm/ Dextrose 55 ml @ 110 mls/hr Q24H IVPB 06/13/16 21:00 06/20/16 20:59 06/14/16 20:45 Heparin Sodium (Porcine) (Heparin 5000 units/ml) 5,000 units EVERY 12 HOURS SUBQ 06/13/16 09:00 07/13/16 08:59 06/15/16 08:03 Morphine Sulfate (Morphine Sulfate) 2 mg Q4H PRN IVP Moderate Pain (Pain Scale 4-6) 06/13/16 07:00 06/20/16 06:59 06/14/16 16:44 Nitroglycerin 0.4 mg 0.4 mg Q5M PRN SL Prn Chest Pain 06/13/16 07:00 07/13/16 06:59 Ondansetron HCl (Zofran) 4 mg Q6H PRN IVP Nausea & Vomiting 06/13/16 07:00 07/13/16 06:59 Polyethylene Glycol (Miralax) 17 gm DAILYPRN PRN ORAL Constipation 06/13/16 07:00 07/13/16 06:59 Ranitidine HCl (Zantac) 150 mg BEDTIME ORAL 06/13/16 21:00 07/13/16 20:59 06/14/16 20:45 Sodium Chloride (Sodium Chloride 1000ml bag) 1,000 ml @ 75 mls/hr [id number] IV 06/13/16 12:00 07/13/16 11:59 06/15/16 00:48 Temazepam (Restoril) 15 mg HSPRN PRN ORAL Insomnia 06/13/16 07:00 06/20/16 06:59 Allergies: Coded Allergies: No Known Allergies (Unverified , 06/12/16) ROS Limited/Unobtainable: No Constitutional: Reports: chills, fever HEENT: Reports: no symptoms Cardiovascular: Reports: no symptoms Respiratory: Reports: no symptoms Gastrointestinal/Abdominal: Reports: no symptoms Genitourinary: Reports: burning Neurologic/Psychiatric: Reports: no symptoms Subjective 80 YO F admitted with UTI. Now Sepsis. Cover for Int Med-Dr Hauser. Objective Last Vital Signs Date Time Temp Pulse Resp B/P Pulse Ox O2 Delivery O2 Flow Rate FiO2 06/15/16 08:45 97.7 75 19 114/62 97 Room Air 75 06/15/16 08:00 2.0 06/14/16 19:09 28 Laboratory Tests Test 06/15/16 04:50 White Blood Count 14.8 K/UL (4.8-10.8) H Red Blood Count 3.40 M/UL (4.20-5.40) L Hemoglobin 9.8 G/DL (12.0-16.0) L Hematocrit 29.4 % (37.0-47.0) L Mean Corpuscular Volume 86 FL (80-99) Mean Corpuscular Hemoglobin 28.9 PG (27.0-31.0) Mean Corpuscular Hemoglobin Concent 33.4 G/DL (32.0-36.0) Red Cell Distribution Width 13.0 % (11.6-14.8) Platelet Count 317 K/UL (150-450) Mean Platelet Volume 5.5 FL (6.5-10.1) L Neutrophils (%) (Auto) 73.2 % (45.0-75.0) Lymphocytes (%) (Auto) 11.2 % (20.0-45.0) L Monocytes (%) (Auto) 13.8 % (1.0-10.0) H Eosinophils (%) (Auto) 0.8 % (0.0-3.0) Basophils (%) (Auto) 0.9 % (0.0-2.0) Sodium Level 134 mEQ/L (135-145) L Potassium Level 3.3 mEQ/L (3.4-4.9) L Chloride Level 99 mEQ/L (98-107) Carbon Dioxide Level 19 mEQ/L (20-30) L Anion Gap 16 (5-15) H Blood Urea Nitrogen 9 mg/dL (7-23) Creatinine 0.8 mg/dL (0.5-0.9) Estimat Glomerular Filtration Rate mL/min (>60) Glucose Level 101 mg/dL (74-106) Calcium Level 8.0 mg/dL (8.6-10.2) L Magnesium Level 1.9 mg/dL (1.7-2.5) Microbiology Date/Time Source Procedure Growth Status 06/12/16 21:00 Blood Blood Culture - Final Escherichia Coli Complete 06/12/16 20:55 Blood Blood Culture - Preliminary Gram Negative Johnathon Resulted 06/12/16 21:15 Indwelling Cath Urine Culture - Final Escherichia Coli Complete Intake and Output 06/14/16 06/15/16 19:00 07:00 Intake Total 925 ml 1290 ml Output Total 680 ml 2275 ml Balance 245 ml -985 ml Intake Oral 560 ml IV Total 925 ml 730 ml Output Urine Total 680 ml 2275 ml Objective General Appearance: WD/WN, no apparent distress, alert, thin EENT: PERRL/EOMI, normal ENT inspection, TMs normal Neck: non-tender, normal alignment, supple, normal inspection Cardiovascular: normal peripheral pulses, normal rate, regular rhythm, no gallop/murmur, no JVD Respiratory/Chest: chest wall non-tender, lungs clear, normal breath sounds, no respiratory distress, no accessory muscle use Abdomen: normal bowel sounds, non tender, soft, no organomegaly, no mass Extremities: normal range of motion Neurologic: microsoft dynamics consultant II-XII grossly normal, no motor/sensory deficits Skin: normal pigmentation, warm/dry Assessment/Plan Problem List: (1) E coli infection Assessment & Plan: See UTI below (2) Pyelonephritis (3) Leukocytosis Assessment & Plan: Improving on antibiotic. (4) Fever chills (5) Hypotension (6) UTI (urinary tract infection) Assessment & Plan: E. Coli. Continue cefepime; D/C vanco (7) Sepsis Assessment & Plan: E. Coli. Continue cefepime per ID Status: progressing LEONOR CHRISTIANSON Jun 15, 2016 11:52
[2016-06-15] MEDS: Morphine Sulfate 2mg/ml Inj IVP PRN (16:55)
[2016-06-15] MEDS: Cefepime 1gm/D5W 55ml IVPB SCH ×2 (21:02)
--- NOTE | 2016-06-15 23:01 | Pulmonology Progress Note ---
Assessment/Plan Assessment/Plan Assessment/Plan Assessment/Plan sepsis UTI acute renal failure /ATN ( possibly due to dehydartion, vs sepsis, likely prerenal) acute hypo Na hypokalemia hematuria mild anemia PLAN OF CARE IVF empiric abx fup with cx blood cx pending hematuria to be cultured hyponatremia workup IVF with NS, monitor renal parameters renal US Subjective ROS Limited/Unobtainable: No Constitutional: Reports: anorexia, chills, fatigue, fever Genitourinary: Reports: dysuria, frequency, hematuria, nocturia, urgency Neurologic: Reports: confusion, weakness Allergies: Coded Allergies: No Known Allergies (Unverified , 06/12/16) Objective Last 24 Hour Vital Signs Date Time Temp Pulse Resp B/P Pulse Ox O2 Delivery O2 Flow Rate FiO2 06/15/16 20:00 99.7 72 18 122/58 98 Room Air 06/15/16 17:25 100.4 06/15/16 16:00 100.4 78 20 131/72 97 Room Air 06/15/16 12:16 97.0 79 21 133/67 97 Room Air 06/15/16 08:45 97.7 75 19 114/62 97 Room Air 75 06/15/16 08:00 98.4 73 18 108/58 96 Nasal Cannula 2.0 06/15/16 06:50 75 18 Nasal Cannula 2.0 28 06/15/16 06:50 95 Nasal Cannula 2.0 28 06/15/16 06:50 Nasal Cannula 2.0 28 06/15/16 04:00 98.6 76 18 123/72 95 Nasal Cannula 2.0 06/15/16 00:00 99.0 77 18 120/62 96 Nasal Cannula 2.0 Intake and Output 06/14/16 06/15/16 19:00 07:00 Intake Total 925 ml 1290 ml Output Total 680 ml 2275 ml Balance 245 ml -985 ml Intake Oral 560 ml IV Total 925 ml 730 ml Output Urine Total 680 ml 2275 ml General Appearance: no acute distress HEENT: normocephalic, atraumatic, PERRL Respiratory/Chest: chest wall non-tender, decreased breath sounds, accessory muscle use Breasts: no masses Cardiovascular: normal peripheral pulses, normal rate, regular rhythm, no JVD Abdomen: normal bowel sounds, soft, non tender, no organomegaly, non distended Genitourinary: normal external genitalia Extremities: no cyanosis Skin: no rash, no lesions Neurologic/Psychiatric: client technical specialist II-XII grossly normal, no motor/sensory deficits Laboratory Tests 06/15/16 04:50: White Blood Count 14.8H, Red Blood Count 3.40L, Hemoglobin 9.8L, Hematocrit 29.4L, Mean Corpuscular Volume 86, Mean Corpuscular Hemoglobin 28.9, Mean Corpuscular Hemoglobin Concent 33.4, Red Cell Distribution Width 13.0, Platelet Count 317, Mean Platelet Volume 5.5L, Neutrophils (%) (Auto) 73.2, Lymphocytes ( %) (Auto) 11.2L, Monocytes (%) (Auto) 13.8H, Eosinophils (%) (Auto) 0.8, Basophils (%) (Auto) 0.9, Sodium Level 134L, Potassium Level 3.3L, Chloride Level 99, Carbon Dioxide Level 19L, Anion Gap 16H, Blood Urea Nitrogen 9, Creatinine 0.8, Estimat Glomerular Filtration Rate , Glucose Level 101, Calcium Level 8.0L, Magnesium Level 1.9 Current Medications Medications (Trade) Dose Ordered Sig/Joseline Route PRN Reason Start Time Stop Time Status Last Admin Dose Admin Acetaminophen (Tylenol) 650 mg Q4H PRN ORAL fever 06/13/16 07:00 07/13/16 06:59 06/13/16 09:41 Albuterol/ Ipratropium (DuoNeb 0.5-3(2.5)mg/3ml) 3 ml Q4H PRN HHN Shortness of Breath 06/13/16 07:00 06/18/16 06:59 Cefepime HCl 1 gm/ Dextrose 55 ml @ 110 mls/hr Q24H IVPB 06/13/16 21:00 06/20/16 20:59 06/15/16 21:02 Heparin Sodium (Porcine) (Heparin 5000 units/ml) 5,000 units EVERY 12 HOURS SUBQ 06/13/16 09:00 07/13/16 08:59 06/15/16 21:09 Morphine Sulfate (Morphine Sulfate) 2 mg Q4H PRN IVP Moderate Pain (Pain Scale 4-6) 06/13/16 07:00 06/20/16 06:59 06/15/16 16:55 Nitroglycerin 0.4 mg 0.4 mg Q5M PRN SL Prn Chest Pain 06/13/16 07:00 07/13/16 06:59 Ondansetron HCl (Zofran) 4 mg Q6H PRN IVP Nausea & Vomiting 06/13/16 07:00 07/13/16 06:59 Polyethylene Glycol (Miralax) 17 gm DAILYPRN PRN ORAL Constipation 06/13/16 07:00 07/13/16 06:59 Ranitidine HCl (Zantac) 150 mg BEDTIME ORAL 06/13/16 21:00 07/13/16 20:59 06/15/16 21:02 Sodium Chloride (Sodium Chloride 1000ml bag) 1,000 ml @ 75 mls/hr [id number] IV 06/13/16 12:00 07/13/16 11:59 06/15/16 13:00 Temazepam (Restoril) 15 mg HSPRN PRN ORAL Insomnia 06/13/16 07:00 06/20/16 06:59 YAAKOV DE DIOS Jun 15, 2016 23:01
[2016-06-16] VITALS: BP 122/57
[2016-06-16 04:00] VITALS: BP 113/59
[2016-06-16 07:14] LABS: ANION GAP 14 (5-15); CALCIUM 7.8 mg/dL (8.6-10.2); CARBON DIOXIDE 21 mEQ/L (20-30); CHLORIDE 99 mEQ/L (98-107); CREATININE 0.6 mg/dL (0.5-0.9); HEMOLYSIS 1; POTASSIUM 3.8 mEQ/L (3.4-4.9); SODIUM 134 mEQ/L (135-145)
[2016-06-16 07:29] LABS: EOSINOPHILS % (AUTO) 1.2 % (0.0-3.0); LYMPHOCYTES % (AUTO) 11.1 % (20.0-45.0); MEAN CORPUSCULAR HEMOGLOBIN 29.4 PG (27.0-31.0); MEAN CORPUSCULAR HGB CONC 33.9 G/DL (32.0-36.0); MEAN CORPUSCULAR VOLUME 87 FL (80-99); MEAN PLATELET VOLUME 5.2 FL (6.5-10.1); MONOCYTES % (AUTO) 10.2 % (1.0-10.0); NEUTROPHILS % (AUTO) 76.5 % (45.0-75.0); PLATELET COUNT 327 K/UL (150-450); RED BLOOD COUNT 3.32 M/UL (4.20-5.40); RED CELL DISTRIBUTION WIDTH 12.9 % (11.6-14.8); WHITE BLOOD COUNT 15.2 K/UL (4.8-10.8)
[2016-06-16 08:41] VITALS: BP 122/66
[2016-06-16] MEDS: Heparin 5000 units/ml inj SUBQ SCH ×2 (08:51→19:55)
--- NOTE | 2016-06-16 09:50 | Infectious Diseases Prog Note ---
Assessment/Plan Assessment/Plan A: The patient is an 80-year-old UTI E Coli US : No obst SP dysuria and hematuria Bacteremia E Coli Sepsis improving Leucocytosis improving overall A: Continue with cefepime d# 4 / , upon DC will change to oral Keflex to complete the course Monitor CBC Monitor BMP Monitor cxray Monitor cultures Subjective Constitutional: Denies: anorexia, chills, drenching sweats, fatigue, fever, no symptoms, other Allergies: Coded Allergies: No Known Allergies (Unverified , 06/12/16) Objective Vital Signs Last 24 Hour Vital Signs Date Time Temp Pulse Resp B/P Pulse Ox O2 Delivery O2 Flow Rate FiO2 06/16/16 08:41 97.5 68 20 122/66 97 Room Air 06/16/16 04:00 98.2 71 18 113/59 98 Nasal Cannula 2.0 06/16/16 00:00 99.0 77 18 122/57 97 Nasal Cannula 2.0 06/15/16 20:00 99.7 72 18 122/58 98 Room Air 06/15/16 19:45 98 Nasal Cannula 2.0 28 06/15/16 19:45 Nasal Cannula 2.0 28 06/15/16 19:45 74 18 Room Air 2.0 28 06/15/16 17:25 100.4 06/15/16 16:00 100.4 78 20 131/72 97 Room Air 06/15/16 12:16 97.0 79 21 133/67 97 Room Air Height (Feet): 5 Height (Inches): 0.25 Weight (Pounds): 115 HEENT: atraumatic Respiratory/Chest: normal breath sounds Cardiovascular: regular rhythm Abdomen: no organomegaly Laboratory Tests Test 06/16/16 02:45 06/16/16 05:15 Urine Osmolality Pending Urine Random Sodium 69 mmol/L White Blood Count 15.2 K/UL (4.8-10.8) H Red Blood Count 3.32 M/UL (4.20-5.40) L Hemoglobin 9.8 G/DL (12.0-16.0) L Hematocrit 28.8 % (37.0-47.0) L Mean Corpuscular Volume 87 FL (80-99) Mean Corpuscular Hemoglobin 29.4 PG (27.0-31.0) Mean Corpuscular Hemoglobin Concent 33.9 G/DL (32.0-36.0) Red Cell Distribution Width 12.9 % (11.6-14.8) Platelet Count 327 K/UL (150-450) Mean Platelet Volume 5.2 FL (6.5-10.1) L Neutrophils (%) (Auto) 76.5 % (45.0-75.0) H Lymphocytes (%) (Auto) 11.1 % (20.0-45.0) L Monocytes (%) (Auto) 10.2 % (1.0-10.0) H Eosinophils (%) (Auto) 1.2 % (0.0-3.0) Basophils (%) (Auto) 1.0 % (0.0-2.0) Sodium Level 134 mEQ/L (135-145) L Potassium Level 3.8 mEQ/L (3.4-4.9) Chloride Level 99 mEQ/L (98-107) Carbon Dioxide Level 21 mEQ/L (20-30) Anion Gap 14 (5-15) Blood Urea Nitrogen 8 mg/dL (7-23) Creatinine 0.6 mg/dL (0.5-0.9) Estimat Glomerular Filtration Rate mL/min (>60) Glucose Level 101 mg/dL (74-106) Calcium Level 7.8 mg/dL (8.6-10.2) L Current Medications Medications (Trade) Dose Ordered Sig/Joselien Route PRN Reason Start Time Stop Time Status Last Admin Dose Admin Acetaminophen (Tylenol) 650 mg Q4H PRN ORAL fever 06/13/16 07:00 07/13/16 06:59 06/13/16 09:41 Albuterol/ Ipratropium (DuoNeb 0.5-3(2.5)mg/3ml) 3 ml Q4H PRN HHN Shortness of Breath 06/13/16 07:00 06/18/16 06:59 Cefepime HCl 1 gm/ Dextrose 55 ml @ 110 mls/hr Q24H IVPB 06/13/16 21:00 06/20/16 20:59 06/15/16 21:02 Heparin Sodium (Porcine) (Heparin 5000 units/ml) 5,000 units EVERY 12 HOURS SUBQ 06/13/16 09:00 07/13/16 08:59 06/16/16 08:51 Morphine Sulfate (Morphine Sulfate) 2 mg Q4H PRN IVP Moderate Pain (Pain Scale 4-6) 06/13/16 07:00 06/20/16 06:59 06/15/16 16:55 Nitroglycerin 0.4 mg 0.4 mg Q5M PRN SL Prn Chest Pain 06/13/16 07:00 07/13/16 06:59 Ondansetron HCl (Zofran) 4 mg Q6H PRN IVP Nausea & Vomiting 06/13/16 07:00 07/13/16 06:59 Polyethylene Glycol (Miralax) 17 gm DAILYPRN PRN ORAL Constipation 06/13/16 07:00 07/13/16 06:59 Ranitidine HCl (Zantac) 150 mg BEDTIME ORAL 06/13/16 21:00 07/13/16 20:59 06/15/16 21:02 Sodium Chloride (Sodium Chloride 1000ml bag) 1,000 ml @ 75 mls/hr [id number] IV 06/13/16 12:00 07/13/16 11:59 06/16/16 04:39 Temazepam (Restoril) 15 mg HSPRN PRN ORAL Insomnia 06/13/16 07:00 06/20/16 06:59 EVELYN FISCHER M.D. Jun 16, 2016 09:50
[2016-06-16 11:57] VITALS: BP 115/59
[2016-06-16 16:00] VITALS: BP 129/74
--- NOTE | 2016-06-16 16:25 | Internal Med Progress Note ---
Subjective Date of Service: Jun 16, 2016 Physician Name Leonor Christianson Attending Physician Mati Hauser MD Current Medications Medications (Trade) Dose Ordered Sig/Joseline Route PRN Reason Start Time Stop Time Status Last Admin Dose Admin Acetaminophen (Tylenol) 650 mg Q4H PRN ORAL fever 06/13/16 07:00 07/13/16 06:59 06/13/16 09:41 Albuterol/ Ipratropium (DuoNeb 0.5-3(2.5)mg/3ml) 3 ml Q4H PRN HHN Shortness of Breath 06/13/16 07:00 06/18/16 06:59 Cefepime HCl 1 gm/ Dextrose 55 ml @ 110 mls/hr Q24H IVPB 06/13/16 21:00 06/20/16 20:59 06/15/16 21:02 Heparin Sodium (Porcine) (Heparin 5000 units/ml) 5,000 units EVERY 12 HOURS SUBQ 06/13/16 09:00 07/13/16 08:59 06/16/16 08:51 Morphine Sulfate (Morphine Sulfate) 2 mg Q4H PRN IVP Moderate Pain (Pain Scale 4-6) 06/13/16 07:00 06/20/16 06:59 06/15/16 16:55 Nitroglycerin 0.4 mg 0.4 mg Q5M PRN SL Prn Chest Pain 06/13/16 07:00 07/13/16 06:59 Ondansetron HCl (Zofran) 4 mg Q6H PRN IVP Nausea & Vomiting 06/13/16 07:00 07/13/16 06:59 Polyethylene Glycol (Miralax) 17 gm DAILYPRN PRN ORAL Constipation 06/13/16 07:00 07/13/16 06:59 Ranitidine HCl (Zantac) 150 mg BEDTIME ORAL 06/13/16 21:00 07/13/16 20:59 06/15/16 21:02 Sodium Chloride (Sodium Chloride 1000ml bag) 1,000 ml @ 75 mls/hr [id number] IV 06/13/16 12:00 07/13/16 11:59 06/16/16 04:39 Temazepam (Restoril) 15 mg HSPRN PRN ORAL Insomnia 06/13/16 07:00 06/20/16 06:59 Allergies: Coded Allergies: No Known Allergies (Unverified , 06/12/16) ROS Limited/Unobtainable: No Constitutional: Reports: no symptoms HEENT: Reports: no symptoms Cardiovascular: Reports: no symptoms Respiratory: Reports: no symptoms Gastrointestinal/Abdominal: Reports: no symptoms Genitourinary: Reports: no symptoms Neurologic/Psychiatric: Reports: no symptoms Subjective 80 YO F admitted with UTI. Now Sepsis. Cover for Int Joaquin-Dr Hauser. Objective Last Vital Signs Date Time Temp Pulse Resp B/P Pulse Ox O2 Delivery O2 Flow Rate FiO2 06/16/16 11:57 97.2 68 19 115/59 99 Room Air 06/16/16 04:00 2.0 06/15/16 19:45 28 Laboratory Tests Test 06/16/16 02:45 06/16/16 05:15 Urine Osmolality Pending Urine Random Sodium 69 mmol/L White Blood Count 15.2 K/UL (4.8-10.8) H Red Blood Count 3.32 M/UL (4.20-5.40) L Hemoglobin 9.8 G/DL (12.0-16.0) L Hematocrit 28.8 % (37.0-47.0) L Mean Corpuscular Volume 87 FL (80-99) Mean Corpuscular Hemoglobin 29.4 PG (27.0-31.0) Mean Corpuscular Hemoglobin Concent 33.9 G/DL (32.0-36.0) Red Cell Distribution Width 12.9 % (11.6-14.8) Platelet Count 327 K/UL (150-450) Mean Platelet Volume 5.2 FL (6.5-10.1) L Neutrophils (%) (Auto) 76.5 % (45.0-75.0) H Lymphocytes (%) (Auto) 11.1 % (20.0-45.0) L Monocytes (%) (Auto) 10.2 % (1.0-10.0) H Eosinophils (%) (Auto) 1.2 % (0.0-3.0) Basophils (%) (Auto) 1.0 % (0.0-2.0) Sodium Level 134 mEQ/L (135-145) L Potassium Level 3.8 mEQ/L (3.4-4.9) Chloride Level 99 mEQ/L (98-107) Carbon Dioxide Level 21 mEQ/L (20-30) Anion Gap 14 (5-15) Blood Urea Nitrogen 8 mg/dL (7-23) Creatinine 0.6 mg/dL (0.5-0.9) Estimat Glomerular Filtration Rate mL/min (>60) Glucose Level 101 mg/dL (74-106) Calcium Level 7.8 mg/dL (8.6-10.2) L Intake and Output 06/15/16 06/16/16 19:00 07:00 Intake Total 1035 ml 1617.5 ml Output Total 1500 ml 2500 ml Balance -465 ml -882.5 ml Intake Oral 360 ml 700 ml IV Total 675 ml 917.5 ml Output Urine Total 1500 ml 2500 ml Objective General Appearance: WD/WN, no apparent distress, alert, thin EENT: PERRL/EOMI, normal ENT inspection, TMs normal Neck: non-tender, normal alignment, supple, normal inspection Cardiovascular: normal peripheral pulses, normal rate, regular rhythm, no gallop/murmur, no JVD Respiratory/Chest: chest wall non-tender, lungs clear, normal breath sounds, no respiratory distress, no accessory muscle use Abdomen: normal bowel sounds, non tender, soft, no organomegaly, no mass Extremities: normal range of motion Neurologic: laboratory monitor II-XII grossly normal, no motor/sensory deficits Skin: normal pigmentation, warm/dry Assessment/Plan Problem List: (1) E coli infection Assessment & Plan: See UTI below (2) Pyelonephritis (3) Leukocytosis Assessment & Plan: Improving on antibiotic. (4) Fever chills (5) Hypotension (6) UTI (urinary tract infection) Assessment & Plan: E. Coli. Continue cefepime; D/C vanco (7) Sepsis Assessment & Plan: E. Coli. Continue cefepime per ID Status: progressing Assessment/Plan Discharge planning: home health LEONOR CHRISTIANSON Jun 16, 2016 16:25
[2016-06-16] MEDS ORDERED: Tubing IV Secondary IV ONE (17:55)
[2016-06-16 20:00] VITALS: BP 125/66
[2016-06-16] MEDS: ceFAZolin 1gm in D5W 55ml IVP SCH (20:58)
--- NOTE | 2016-06-16 23:13 | Pulmonology Progress Note ---
Assessment/Plan Assessment/Plan Assessment/Plan ASSESSMENT sepsis with bacteremai ( gram megative), likely urinary source UTI acute renal failure /ATN ( possibly due to dehydration, vs sepsis, likely prerenal) acute hypo Na hypokalemia hematuria mild anemia [facility] floor IVF abx urine cx + E coli, blood cx + GNR no further hematuria hyponatremia workup noted Na up to 133, likely depletional, IVF with NS for 1 more day, monitor renal parameter, creat down to normal renal US Subjective ROS Limited/Unobtainable: Yes Constitutional: Reports: chills, fatigue Gastrointestinal/Abdominal: Reports: nausea Genitourinary: Reports: dysuria, frequency, hematuria, nocturia, urgency Allergies: Coded Allergies: No Known Allergies (Unverified , 06/12/16) Objective Last 24 Hour Vital Signs Date Time Temp Pulse Resp B/P Pulse Ox O2 Delivery O2 Flow Rate FiO2 06/16/16 20:00 98.1 71 16 125/66 97 Room Air 06/16/16 19:40 Room Air 21 06/16/16 19:40 77 18 Room Air 21 06/16/16 19:40 96 Nasal Cannula 21 06/16/16 16:00 97.7 70 18 129/74 17 06/16/16 11:57 97.2 68 19 115/59 99 Room Air 06/16/16 08:41 97.5 68 20 122/66 97 Room Air 06/16/16 04:00 98.2 71 18 113/59 98 Nasal Cannula 2.0 06/16/16 00:00 99.0 77 18 122/57 97 Nasal Cannula 2.0 Intake and Output 06/15/16 06/16/16 19:00 07:00 Intake Total 1035 ml 1617.5 ml Output Total 1500 ml 2500 ml Balance -465 ml -882.5 ml Intake Oral 360 ml 700 ml IV Total 675 ml 917.5 ml Output Urine Total 1500 ml 2500 ml General Appearance: no acute distress HEENT: normocephalic, atraumatic, PERRL Respiratory/Chest: chest wall non-tender, decreased breath sounds, accessory muscle use Breasts: no masses Cardiovascular: normal peripheral pulses, normal rate, regular rhythm, no JVD Abdomen: normal bowel sounds, soft, non tender, no organomegaly, non distended Genitourinary: normal external genitalia Extremities: no cyanosis Skin: lesions 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, responsive, disoriented Laboratory Tests 06/16/16 02:45: Urine Osmolality [Pending], Urine Random Sodium 69 06/16/16 05:15: White Blood Count 15.2H, Red Blood Count 3.32L, Hemoglobin 9.8L, Hematocrit 28.8L, Mean Corpuscular Volume 87, Mean Corpuscular Hemoglobin 29.4, Mean Corpuscular Hemoglobin Concent 33.9, Red Cell Distribution Width 12.9, Platelet Count 327, Mean Platelet Volume 5.2L, Neutrophils (%) (Auto) 76.5H, Lymphocytes (%) (Auto) 11.1L, Monocytes (%) (Auto) 10.2H, Eosinophils (%) (Auto) 1.2, Basophils (%) (Auto) 1.0, Sodium Level 134L, Potassium Level 3.8, Chloride Level 99, Carbon Dioxide Level 21, Anion Gap 14, Blood Urea Nitrogen 8, Creatinine 0.6, Estimat Glomerular Filtration Rate , Glucose Level 101, Calcium Level 7.8L Current Medications Medications (Trade) Dose Ordered Sig/Joseline Route PRN Reason Start Time Stop Time Status Last Admin Dose Admin Acetaminophen (Tylenol) 650 mg Q4H PRN ORAL fever 06/13/16 07:00 07/13/16 06:59 06/13/16 09:41 Albuterol/ Ipratropium (DuoNeb 0.5-3(2.5)mg/3ml) 3 ml Q4H PRN HHN Shortness of Breath 06/13/16 07:00 06/18/16 06:59 Cefazolin Sodium/ Dextrose (Ancef/D5W) 55 ml @ 110 mls/hr EVERY 8 HOURS IVP 06/16/16 22:00 06/23/16 21:59 06/16/16 20:58 Heparin Sodium (Porcine) (Heparin 5000 units/ml) 5,000 units EVERY 12 HOURS SUBQ 06/13/16 09:00 07/13/16 08:59 06/16/16 19:55 Ibuprofen (Advil) 400 mg Q6HR PRN ORAL pain 06/16/16 22:45 07/16/16 22:44 UNV Morphine Sulfate (Morphine Sulfate) 2 mg Q4H PRN IVP Moderate Pain (Pain Scale 4-6) 06/13/16 07:00 06/20/16 06:59 06/15/16 16:55 Nitroglycerin 0.4 mg 0.4 mg Q5M PRN SL Prn Chest Pain 06/13/16 07:00 07/13/16 06:59 Ondansetron HCl (Zofran) 4 mg Q6H PRN IVP Nausea & Vomiting 06/13/16 07:00 07/13/16 06:59 Polyethylene Glycol (Miralax) 17 gm DAILYPRN PRN ORAL Constipation 06/13/16 07:00 07/13/16 06:59 Ranitidine HCl 150 mg 150 mg BEDTIME ORAL 06/13/16 21:00 07/13/16 20:59 06/16/16 19:54 Sodium Chloride (Sodium Chloride 1000ml bag) 1,000 ml @ 75 mls/hr [id number] IV 06/13/16 12:00 07/13/16 11:59 06/16/16 19:43 Temazepam (Restoril) 15 mg HSPRN PRN ORAL Insomnia 06/13/16 07:00 06/20/16 06:59 YAAKOV DE DIOS Jun 16, 2016 23:13
[2016-06-17] VITALS: BP 123/66
[2016-06-17 04:00] VITALS: BP 119/68
[2016-06-17 04:33] LABS: BASOPHILS % (AUTO) 0.8 % (0.0-2.0); EOSINOPHILS % (AUTO) 1.6 % (0.0-3.0); LYMPHOCYTES % (AUTO) 12.2 % (20.0-45.0); MEAN CORPUSCULAR HEMOGLOBIN 29.7 PG (27.0-31.0); MEAN CORPUSCULAR HGB CONC 33.6 G/DL (32.0-36.0); MEAN CORPUSCULAR VOLUME 88 FL (80-99); MEAN PLATELET VOLUME 5.5 FL (6.5-10.1); MONOCYTES % (AUTO) 7.7 % (1.0-10.0); NEUTROPHILS % (AUTO) 77.7 % (45.0-75.0); PLATELET COUNT 411 K/UL (150-450); RED BLOOD COUNT 3.87 M/UL (4.20-5.40); RED CELL DISTRIBUTION WIDTH 13.5 % (11.6-14.8); WHITE BLOOD COUNT 11.3 K/UL (4.8-10.8)
[2016-06-17] MEDS: ceFAZolin 1gm in D5W 55ml IVP SCH ×3 (05:09→22:37)
[2016-06-17 05:18] LABS: ANION GAP 15 (5-15); CALCIUM 7.7 mg/dL (8.6-10.2); CARBON DIOXIDE 21 mEQ/L (20-30); CHLORIDE 102 mEQ/L (98-107); CREATININE 0.6 mg/dL (0.5-0.9); HEMOLYSIS 13; SODIUM 138 mEQ/L (135-145)
[2016-06-17 08:27] VITALS: BP 134/75
[2016-06-17] MEDS: Heparin 5000 units/ml inj SUBQ SCH ×2 (09:08→20:21)
--- NOTE | 2016-06-17 12:49 | Internal Med Progress Note ---
Subjective Date of Service: Jun 17, 2016 Physician Name Cruz Christianson Attending Physician Mati Hauser MD Current Medications Medications (Trade) Dose Ordered Sig/Joseline Route PRN Reason Start Time Stop Time Status Last Admin Dose Admin Acetaminophen (Tylenol) 650 mg Q4H PRN ORAL fever 06/13/16 07:00 07/13/16 06:59 06/13/16 09:41 Albuterol/ Ipratropium (DuoNeb 0.5-3(2.5)mg/3ml) 3 ml Q4H PRN HHN Shortness of Breath 06/13/16 07:00 06/18/16 06:59 Cefazolin Sodium/ Dextrose (Ancef/D5W) 55 ml @ 110 mls/hr EVERY 8 HOURS IVP 06/16/16 22:00 06/23/16 21:59 06/17/16 05:09 Heparin Sodium (Porcine) (Heparin 5000 units/ml) 5,000 units EVERY 12 HOURS SUBQ 06/13/16 09:00 07/13/16 08:59 06/17/16 09:08 Ibuprofen (Advil) 400 mg Q6H PRN ORAL Mild Pain (Pain Scale 1-3) 06/16/16 23:56 07/16/16 22:44 Morphine Sulfate (Morphine Sulfate) 2 mg Q4H PRN IVP Moderate Pain (Pain Scale 4-6) 06/13/16 07:00 06/20/16 06:59 06/15/16 16:55 Nitroglycerin 0.4 mg 0.4 mg Q5M PRN SL Prn Chest Pain 06/13/16 07:00 07/13/16 06:59 Ondansetron HCl (Zofran) 4 mg Q6H PRN IVP Nausea & Vomiting 06/13/16 07:00 07/13/16 06:59 Polyethylene Glycol (Miralax) 17 gm DAILYPRN PRN ORAL Constipation 06/13/16 07:00 07/13/16 06:59 Ranitidine HCl 150 mg 150 mg BEDTIME ORAL 06/13/16 21:00 07/13/16 20:59 06/16/16 19:54 Sodium Chloride (Sodium Chloride 1000ml bag) 1,000 ml @ 75 mls/hr [id number] IV 06/13/16 12:00 07/13/16 11:59 06/17/16 09:06 Temazepam (Restoril) 15 mg HSPRN PRN ORAL Insomnia 06/13/16 07:00 06/20/16 06:59 Allergies: Coded Allergies: No Known Allergies (Unverified , 06/12/16) ROS Limited/Unobtainable: No Constitutional: Reports: chills, fever HEENT: Reports: no symptoms Cardiovascular: Reports: no symptoms Respiratory: Reports: no symptoms Gastrointestinal/Abdominal: Reports: no symptoms Genitourinary: Reports: no symptoms Neurologic/Psychiatric: Reports: no symptoms Subjective 80 YO F admitted with UTI. Now Sepsis. Cover for Int Med-Dr Hauser. Objective Last Vital Signs Date Time Temp Pulse Resp B/P Pulse Ox O2 Delivery O2 Flow Rate FiO2 06/17/16 08:27 97.9 67 19 134/75 95 Room Air 06/17/16 07:59 2.0 28 Laboratory Tests Test 06/17/16 03:20 White Blood Count 11.3 K/UL (4.8-10.8) H Red Blood Count 3.87 M/UL (4.20-5.40) L Hemoglobin 11.5 G/DL (12.0-16.0) L Hematocrit 34.1 % (37.0-47.0) L Mean Corpuscular Volume 88 FL (80-99) Mean Corpuscular Hemoglobin 29.7 PG (27.0-31.0) Mean Corpuscular Hemoglobin Concent 33.6 G/DL (32.0-36.0) Red Cell Distribution Width 13.5 % (11.6-14.8) Platelet Count 411 K/UL (150-450) Mean Platelet Volume 5.5 FL (6.5-10.1) L Neutrophils (%) (Auto) 77.7 % (45.0-75.0) H Lymphocytes (%) (Auto) 12.2 % (20.0-45.0) L Monocytes (%) (Auto) 7.7 % (1.0-10.0) Eosinophils (%) (Auto) 1.6 % (0.0-3.0) Basophils (%) (Auto) 0.8 % (0.0-2.0) Sodium Level 138 mEQ/L (135-145) Potassium Level 4.0 mEQ/L (3.4-4.9) Chloride Level 102 mEQ/L (98-107) Carbon Dioxide Level 21 mEQ/L (20-30) Anion Gap 15 (5-15) Blood Urea Nitrogen 8 mg/dL (7-23) Creatinine 0.6 mg/dL (0.5-0.9) Estimat Glomerular Filtration Rate mL/min (>60) Glucose Level 99 mg/dL (74-106) Calcium Level 7.7 mg/dL (8.6-10.2) L Intake and Output 06/16/16 06/17/16 19:00 07:00 Intake Total 855 ml 1285 ml Output Total 1500 ml 2300 ml Balance -645 ml -1015 ml Intake Oral 480 ml 610 ml IV Total 375 ml 675 ml Output Urine Total 1500 ml 2300 ml Objective General Appearance: WD/WN, no apparent distress, alert, thin EENT: PERRL/EOMI, normal ENT inspection, TMs normal Neck: non-tender, normal alignment, supple, normal inspection Cardiovascular: normal peripheral pulses, normal rate, regular rhythm, no gallop/murmur, no JVD Respiratory/Chest: chest wall non-tender, lungs clear, normal breath sounds, no respiratory distress, no accessory muscle use Abdomen: normal bowel sounds, non tender, soft, no organomegaly, no mass Extremities: normal range of motion 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 (4) Fever chills (5) Hypotension (6) UTI (urinary tract infection) Assessment & Plan: E. Coli. Continue cefepime; D/C vanco (7) Sepsis Assessment & Plan: E. Coli. Continue cefepime per ID Status: progressing Assessment/Plan Discharge planning: home health vs SNF possible 06/18/16 CRUZ CHRISTIANSON Jun 17, 2016 12:49
[2016-06-17 12:50] VITALS: BP 114/62
[2016-06-17 16:00] VITALS: BP 131/70
--- NOTE | 2016-06-17 17:03 | Infectious Diseases Prog Note ---
Assessment/Plan Assessment/Plan A: The patient is an 80-year-old UTI E Coli US : No obst SP dysuria and hematuria Bacteremia E Coli Sepsis improving Leucocytosis improving A: Continue with cefepime d# 5 / , upon DC will change to oral Keflex to complete the course Monitor CBC Monitor BMP Monitor cxray Monitor cultures Subjective Constitutional: Denies: anorexia, chills, drenching sweats, fatigue, fever, no symptoms, other Allergies: Coded Allergies: No Known Allergies (Unverified , 06/12/16) Objective Vital Signs Last 24 Hour Vital Signs Date Time Temp Pulse Resp B/P Pulse Ox O2 Delivery O2 Flow Rate FiO2 06/17/16 12:50 98.2 62 21 114/62 95 Room Air 06/17/16 08:27 97.9 67 19 134/75 95 Room Air 06/17/16 07:59 71 18 Nasal Cannula 2.0 28 06/17/16 07:58 97 Nasal Cannula 2.0 28 06/17/16 07:57 Nasal Cannula 2.0 28 06/17/16 04:00 97.3 71 18 119/68 97 Nasal Cannula 2.0 06/17/16 00:00 97.6 72 18 123/66 96 Nasal Cannula 2.0 06/16/16 20:00 98.1 71 16 125/66 97 Room Air 06/16/16 19:40 Room Air 21 06/16/16 19:40 77 18 Room Air 21 06/16/16 19:40 96 Nasal Cannula 21 Height (Feet): 5 Height (Inches): 0.25 Weight (Pounds): 115 HEENT: anicteric Respiratory/Chest: normal breath sounds Cardiovascular: regular rhythm Abdomen: non distended Laboratory Tests Test 06/17/16 03:20 White Blood Count 11.3 K/UL (4.8-10.8) H Red Blood Count 3.87 M/UL (4.20-5.40) L Hemoglobin 11.5 G/DL (12.0-16.0) L Hematocrit 34.1 % (37.0-47.0) L Mean Corpuscular Volume 88 FL (80-99) Mean Corpuscular Hemoglobin 29.7 PG (27.0-31.0) Mean Corpuscular Hemoglobin Concent 33.6 G/DL (32.0-36.0) Red Cell Distribution Width 13.5 % (11.6-14.8) Platelet Count 411 K/UL (150-450) Mean Platelet Volume 5.5 FL (6.5-10.1) L Neutrophils (%) (Auto) 77.7 % (45.0-75.0) H Lymphocytes (%) (Auto) 12.2 % (20.0-45.0) L Monocytes (%) (Auto) 7.7 % (1.0-10.0) Eosinophils (%) (Auto) 1.6 % (0.0-3.0) Basophils (%) (Auto) 0.8 % (0.0-2.0) Sodium Level 138 mEQ/L (135-145) Potassium Level 4.0 mEQ/L (3.4-4.9) Chloride Level 102 mEQ/L (98-107) Carbon Dioxide Level 21 mEQ/L (20-30) Anion Gap 15 (5-15) Blood Urea Nitrogen 8 mg/dL (7-23) Creatinine 0.6 mg/dL (0.5-0.9) Estimat Glomerular Filtration Rate mL/min (>60) Glucose Level 99 mg/dL (74-106) Calcium Level 7.7 mg/dL (8.6-10.2) L Current Medications Medications (Trade) Dose Ordered Sig/Joseline Route PRN Reason Start Time Stop Time Status Last Admin Dose Admin Acetaminophen (Tylenol) 650 mg Q4H PRN ORAL fever 06/13/16 07:00 07/13/16 06:59 06/13/16 09:41 Albuterol/ Ipratropium (DuoNeb 0.5-3(2.5)mg/3ml) 3 ml Q4H PRN HHN Shortness of Breath 06/13/16 07:00 06/18/16 06:59 Cefazolin Sodium/ Dextrose (Ancef/D5W) 55 ml @ 110 mls/hr EVERY 8 HOURS IVP 06/16/16 22:00 06/23/16 21:59 06/17/16 13:11 Heparin Sodium (Porcine) (Heparin 5000 units/ml) 5,000 units EVERY 12 HOURS SUBQ 06/13/16 09:00 07/13/16 08:59 06/17/16 09:08 Ibuprofen (Advil) 400 mg Q6H PRN ORAL Mild Pain (Pain Scale 1-3) 06/16/16 23:56 07/16/16 22:44 Morphine Sulfate (Morphine Sulfate) 2 mg Q4H PRN IVP Moderate Pain (Pain Scale 4-6) 06/13/16 07:00 06/20/16 06:59 06/15/16 16:55 Nitroglycerin 0.4 mg 0.4 mg Q5M PRN SL Prn Chest Pain 06/13/16 07:00 07/13/16 06:59 Ondansetron HCl (Zofran) 4 mg Q6H PRN IVP Nausea & Vomiting 06/13/16 07:00 07/13/16 06:59 Polyethylene Glycol (Miralax) 17 gm DAILYPRN PRN ORAL Constipation 06/13/16 07:00 07/13/16 06:59 Ranitidine HCl 150 mg 150 mg BEDTIME ORAL 06/13/16 21:00 07/13/16 20:59 06/16/16 19:54 Sodium Chloride (Sodium Chloride 1000ml bag) 1,000 ml @ 75 mls/hr [id number] IV 06/13/16 12:00 07/13/16 11:59 06/17/16 09:06 Temazepam (Restoril) 15 mg HSPRN PRN ORAL Insomnia 06/13/16 07:00 06/20/16 06:59 EVELYN IFSCHER M.D. Jun 17, 2016 17:03
[2016-06-17 20:00] VITALS: BP 145/76
--- NOTE | 2016-06-17 20:50 | Pulmonology Progress Note ---
Assessment/Plan Assessment/Plan ASSESSMENT sepsis with bacteremai ( gram megative), likely urinary source UTI acute renal failure /ATN ( possibly due to dehydration, vs sepsis, likely prerenal) acute hypo Na hypokalemia hematuria mild anemia [facility] C[facility] floor IVF abx urine cx + E coli, blood cx + GNR no further hematuria hyponatremia workup noted Na up to 133, likely depletional, IVF with NS for 1 more day, monitor renal parameter, creat down to normal renal US Subjective ROS Limited/Unobtainable: Yes Constitutional: Reports: anorexia, chills, fatigue, fever Respiratory: Reports: dyspnea at rest, dyspnea on exertion, pleuritic pain, productive cough, sputum, wheezing Neurologic: Reports: confusion, weakness Allergies: Coded Allergies: No Known Allergies (Unverified , 06/12/16) Objective Last 24 Hour Vital Signs Date Time Temp Pulse Resp B/P Pulse Ox O2 Delivery O2 Flow Rate FiO2 06/17/16 20:40 69 18 Room Air 06/17/16 20:39 96 Room Air 06/17/16 20:39 Room Air 21 06/17/16 16:00 98.1 73 20 131/70 Nasal Cannula 2.0 06/17/16 12:50 98.2 62 21 114/62 95 Room Air 06/17/16 08:27 97.9 67 19 134/75 95 Room Air 06/17/16 07:59 71 18 Nasal Cannula 2.0 28 06/17/16 07:58 97 Nasal Cannula 2.0 28 06/17/16 07:57 Nasal Cannula 2.0 28 06/17/16 04:00 97.3 71 18 119/68 97 Nasal Cannula 2.0 06/17/16 00:00 97.6 72 18 123/66 96 Nasal Cannula 2.0 Intake and Output 06/16/16 06/17/16 19:00 07:00 Intake Total 855 ml 1285 ml Output Total 1500 ml 2300 ml Balance -645 ml -1015 ml Intake Oral 480 ml 610 ml IV Total 375 ml 675 ml Output Urine Total 1500 ml 2300 ml General Appearance: no acute distress HEENT: normocephalic, atraumatic, PERRL Respiratory/Chest: chest wall non-tender, decreased breath sounds, accessory muscle use, rhonchi Breasts: no masses Cardiovascular: normal peripheral pulses, normal rate, regular rhythm, no JVD Abdomen: normal bowel sounds, soft, non tender, no organomegaly Genitourinary: normal external genitalia Extremities: no cyanosis Skin: no rash, lesions 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, responsive, disoriented Laboratory Tests 06/17/16 03:20: White Blood Count 11.3H, Red Blood Count 3.87L, Hemoglobin 11.5L, Hematocrit 34.1L, Mean Corpuscular Volume 88, Mean Corpuscular Hemoglobin 29.7, Mean Corpuscular Hemoglobin Concent 33.6, Red Cell Distribution Width 13.5, Platelet Count 411, Mean Platelet Volume 5.5L, Neutrophils (%) (Auto) 77.7H, Lymphocytes (%) (Auto) 12.2L, Monocytes (%) (Auto) 7.7, Eosinophils (%) (Auto) 1.6, Basophils (%) (Auto) 0.8, Sodium Level 138, Potassium Level 4.0, Chloride Level 102, Carbon Dioxide Level 21, Anion Gap 15, Blood Urea Nitrogen 8, Creatinine 0.6, Estimat Glomerular Filtration Rate , Glucose Level 99, Calcium Level 7.7L Current Medications Medications (Trade) Dose Ordered Sig/Joseline Route PRN Reason Start Time Stop Time Status Last Admin Dose Admin Acetaminophen (Tylenol) 650 mg Q4H PRN ORAL fever 06/13/16 07:00 07/13/16 06:59 06/13/16 09:41 Albuterol/ Ipratropium (DuoNeb 0.5-3(2.5)mg/3ml) 3 ml Q4H PRN HHN Shortness of Breath 06/13/16 07:00 06/18/16 06:59 Cefazolin Sodium/ Dextrose (Ancef/D5W) 55 ml @ 110 mls/hr EVERY 8 HOURS IVP 06/16/16 22:00 06/23/16 21:59 06/17/16 13:11 Heparin Sodium (Porcine) (Heparin 5000 units/ml) 5,000 units EVERY 12 HOURS SUBQ 06/13/16 09:00 07/13/16 08:59 06/17/16 20:21 Ibuprofen (Advil) 400 mg Q6H PRN ORAL Mild Pain (Pain Scale 1-3) 06/16/16 23:56 07/16/16 22:44 06/17/16 20:20 Morphine Sulfate (Morphine Sulfate) 2 mg Q4H PRN IVP Moderate Pain (Pain Scale 4-6) 06/13/16 07:00 06/20/16 06:59 06/15/16 16:55 Nitroglycerin 0.4 mg 0.4 mg Q5M PRN SL Prn Chest Pain 06/13/16 07:00 07/13/16 06:59 Ondansetron HCl (Zofran) 4 mg Q6H PRN IVP Nausea & Vomiting 06/13/16 07:00 07/13/16 06:59 Polyethylene Glycol (Miralax) 17 gm DAILYPRN PRN ORAL Constipation 06/13/16 07:00 07/13/16 06:59 Ranitidine HCl 150 mg 150 mg BEDTIME ORAL 06/13/16 21:00 07/13/16 20:59 06/17/16 20:20 Sodium Chloride (Sodium Chloride 1000ml bag) 1,000 ml @ 75 mls/hr [id number] IV 06/13/16 12:00 07/13/16 11:59 06/17/16 09:06 Temazepam (Restoril) 15 mg HSPRN PRN ORAL Insomnia 06/13/16 07:00 06/20/16 06:59 YAAKOV DE DIOS Jun 17, 2016 20:50
[2016-06-18] VITALS: BP 125/64
[2016-06-18 04:00] VITALS: BP 116/66
[2016-06-18 05:16] LABS: BASOPHILS % (AUTO) 1.6 % (0.0-2.0); EOSINOPHILS % (AUTO) 1.9 % (0.0-3.0); LYMPHOCYTES % (AUTO) 17.7 % (20.0-45.0); MEAN CORPUSCULAR HEMOGLOBIN 29.1 PG (27.0-31.0); MEAN CORPUSCULAR HGB CONC 33.4 G/DL (32.0-36.0); MEAN CORPUSCULAR VOLUME 87 FL (80-99); MEAN PLATELET VOLUME 4.9 FL (6.5-10.1); MONOCYTES % (AUTO) 6.8 % (1.0-10.0); PLATELET COUNT 478 K/UL (150-450); RED BLOOD COUNT 3.63 M/UL (4.20-5.40); RED CELL DISTRIBUTION WIDTH 12.9 % (11.6-14.8); WHITE BLOOD COUNT 9.7 K/UL (4.8-10.8)
[2016-06-18 05:54] LABS: ANION GAP 15 (5-15); CARBON DIOXIDE 24 mEQ/L (20-30); CHLORIDE 102 mEQ/L (98-107); CREATININE 0.5 mg/dL (0.5-0.9); HEMOLYSIS 0; POTASSIUM 3.2 mEQ/L (3.4-4.9); SODIUM 141 mEQ/L (135-145)
[2016-06-18] MEDS: ceFAZolin 1gm in D5W 55ml IVP SCH ×3 (06:06→21:08)
[2016-06-18] MEDS: Heparin 5000 units/ml inj SUBQ SCH ×2 (08:33→21:09)
[2016-06-18 08:34] VITALS: BP 131/73
[2016-06-18 12:00] VITALS: BP 150/68
[2016-06-18 16:00] VITALS: BP 137/55
--- NOTE | 2016-06-18 18:01 | Internal Med Progress Note ---
Subjective Date of Service: Jun 18, 2016 Physician Name Leonor Christianson Attending Physician Mati Hauser MD Current Medications Medications (Trade) Dose Ordered Sig/Joseline Route PRN Reason Start Time Stop Time Status Last Admin Dose Admin Acetaminophen (Tylenol) 650 mg Q4H PRN ORAL fever 06/13/16 07:00 07/13/16 06:59 06/13/16 09:41 Cefazolin Sodium/ Dextrose (Ancef/D5W) 55 ml @ 110 mls/hr EVERY 8 HOURS IVP 06/16/16 22:00 06/23/16 21:59 06/18/16 13:39 Heparin Sodium (Porcine) (Heparin 5000 units/ml) 5,000 units EVERY 12 HOURS SUBQ 06/13/16 09:00 07/13/16 08:59 06/18/16 08:33 Ibuprofen (Advil) 400 mg Q6H PRN ORAL Mild Pain (Pain Scale 1-3) 06/16/16 23:56 07/16/16 22:44 06/17/16 20:20 Morphine Sulfate (Morphine Sulfate) 2 mg Q4H PRN IVP Moderate Pain (Pain Scale 4-6) 06/13/16 07:00 06/20/16 06:59 06/15/16 16:55 Nitroglycerin 0.4 mg 0.4 mg Q5M PRN SL Prn Chest Pain 06/13/16 07:00 07/13/16 06:59 Ondansetron HCl (Zofran) 4 mg Q6H PRN IVP Nausea & Vomiting 06/13/16 07:00 07/13/16 06:59 Polyethylene Glycol (Miralax) 17 gm DAILYPRN PRN ORAL Constipation 06/13/16 07:00 07/13/16 06:59 Ranitidine HCl 150 mg 150 mg BEDTIME ORAL 06/13/16 21:00 07/13/16 20:59 06/17/16 20:20 Sodium Chloride (Sodium Chloride 1000ml bag) 1,000 ml @ 75 mls/hr [id number] IV 06/13/16 12:00 07/13/16 11:59 06/18/16 13:00 Temazepam (Restoril) 15 mg HSPRN PRN ORAL Insomnia 06/13/16 07:00 06/20/16 06:59 Allergies: Coded Allergies: No Known Allergies (Unverified , 3/3/17) ROS Limited/Unobtainable: No Constitutional: Reports: no symptoms HEENT: Reports: no symptoms Cardiovascular: Reports: no symptoms Respiratory: Reports: no symptoms Gastrointestinal/Abdominal: Reports: no symptoms Genitourinary: Reports: no symptoms Neurologic/Psychiatric: Reports: no symptoms Subjective 80 YO F admitted with UTI. Now Sepsis. Cover for Int Joaquin-Dr Hauser. Objective Last Vital Signs Date Time Temp Pulse Resp B/P Pulse Ox O2 Delivery O2 Flow Rate FiO2 06/18/16 16:00 97.0 66 20 137/55 96 Room Air 06/18/16 08:34 2.0 06/18/16 08:33 28 Laboratory Tests Test 06/18/16 03:45 White Blood Count 9.7 K/UL (4.8-10.8) Red Blood Count 3.63 M/UL (4.20-5.40) L Hemoglobin 10.6 G/DL (12.0-16.0) L Hematocrit 31.6 % (37.0-47.0) L Mean Corpuscular Volume 87 FL (80-99) Mean Corpuscular Hemoglobin 29.1 PG (27.0-31.0) Mean Corpuscular Hemoglobin Concent 33.4 G/DL (32.0-36.0) Red Cell Distribution Width 12.9 % (11.6-14.8) Platelet Count 478 K/UL (150-450) H Mean Platelet Volume 4.9 FL (6.5-10.1) L Neutrophils (%) (Auto) 72.0 % (45.0-75.0) Lymphocytes (%) (Auto) 17.7 % (20.0-45.0) L Monocytes (%) (Auto) 6.8 % (1.0-10.0) Eosinophils (%) (Auto) 1.9 % (0.0-3.0) Basophils (%) (Auto) 1.6 % (0.0-2.0) Sodium Level 141 mEQ/L (135-145) Potassium Level 3.2 mEQ/L (3.4-4.9) L Chloride Level 102 mEQ/L (98-107) Carbon Dioxide Level 24 mEQ/L (20-30) Anion Gap 15 (5-15) Blood Urea Nitrogen 6 mg/dL (7-23) L Creatinine 0.5 mg/dL (0.5-0.9) Estimat Glomerular Filtration Rate mL/min (>60) Glucose Level 102 mg/dL (74-106) Calcium Level 8.0 mg/dL (8.6-10.2) L Intake and Output 06/17/16 06/18/16 19:00 07:00 Intake Total 820 ml 1185 ml Output Total 1700 ml 1460 ml Balance -880 ml -275 ml Intake Oral 240 ml 420 ml IV Total 580 ml 765 ml Output Urine Total 1700 ml 1460 ml Objective General Appearance: WD/WN, no apparent distress, alert, thin EENT: PERRL/EOMI, normal ENT inspection, TMs normal Neck: non-tender, normal alignment, supple, normal inspection Cardiovascular: normal peripheral pulses, normal rate, regular rhythm, no gallop/murmur, no JVD Respiratory/Chest: chest wall non-tender, lungs clear, normal breath sounds, no respiratory distress, no accessory muscle use Abdomen: normal bowel sounds, non tender, soft, no organomegaly, no mass Extremities: normal range of motion 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 (4) Fever chills (5) Hypotension (6) UTI (urinary tract infection) Assessment & Plan: E. Coli. Continue cefepime; D/C vanco (7) Sepsis Assessment & Plan: E. Coli. Continue cefepime per ID Assessment/Plan Discharge planning: home health vs SNF possible 06/19/16-see case management note LEONOR CHRISTIANSON Jun 18, 2016 18:01
[2016-06-18 20:00] VITALS: BP 142/69
--- NOTE | 2016-06-18 22:32 | Pulmonology Progress Note ---
Assessment/Plan Assessment/Plan Assessment/Plan Assessment/Plan sepsis UTI acute renal failure /ATN ( possibly due to dehydartion, vs sepsis, likely prerenal) acute hypo Na hypokalemia hematuria mild anemia PLAN OF CARE IVF empiric abx fup with cx blood cx pending hematuria to be cultured hyponatremia workup IVF with NS, monitor renal parameters renal US Subjective ROS Limited/Unobtainable: No Constitutional: Reports: anorexia, fatigue Neurologic: Reports: confusion, weakness Allergies: Coded Allergies: No Known Allergies (Unverified , 06/12/16) Objective Last 24 Hour Vital Signs Date Time Temp Pulse Resp B/P Pulse Ox O2 Delivery O2 Flow Rate FiO2 06/18/16 19:43 Nasal Cannula 2.0 28 06/18/16 19:42 95 Nasal Cannula 2.0 28 06/18/16 19:41 68 18 Nasal Cannula 2.0 28 06/18/16 16:00 97.0 66 20 137/55 96 Room Air 06/18/16 12:00 97.7 69 18 150/68 96 Room Air 06/18/16 08:34 96.8 64 18 131/73 99 Nasal Cannula 2.0 06/18/16 08:33 Nasal Cannula 2.0 28 06/18/16 08:33 98 Nasal Cannula 2.0 28 06/18/16 08:33 66 18 Nasal Cannula 2.0 28 06/18/16 04:00 97.4 65 18 116/66 97 Room Air 06/18/16 00:00 97.6 64 18 125/64 96 Nasal Cannula 2.0 Intake and Output 06/17/16 06/18/16 19:00 07:00 Intake Total 820 ml 1185 ml Output Total 1700 ml 1460 ml Balance -880 ml -275 ml Intake Oral 240 ml 420 ml IV Total 580 ml 765 ml Output Urine Total 1700 ml 1460 ml General Appearance: no acute distress HEENT: atraumatic, anicteric, PERRL Respiratory/Chest: chest wall non-tender, decreased breath sounds, accessory muscle use Breasts: no masses Cardiovascular: normal peripheral pulses, normal rate, regular rhythm, no JVD Abdomen: normal bowel sounds, soft, non tender, no organomegaly, non distended , no mass Genitourinary: normal external genitalia Extremities: no cyanosis Skin: no rash, no lesions 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, no motor/sensory deficits Laboratory Tests 06/18/16 03:45: White Blood Count 9.7, Red Blood Count 3.63L, Hemoglobin 10.6L, Hematocrit 31.6L , Mean Corpuscular Volume 87, Mean Corpuscular Hemoglobin 29.1, Mean Corpuscular Hemoglobin Concent 33.4, Red Cell Distribution Width 12.9, Platelet Count 478H, Mean Platelet Volume 4.9L, Neutrophils (%) (Auto) 72.0, Lymphocytes (%) (Auto) 17.7L, Monocytes (%) (Auto) 6.8, Eosinophils (%) (Auto) 1.9, Basophils (%) (Auto) 1.6, Sodium Level 141, Potassium Level 3.2L, Chloride Level 102, Carbon Dioxide Level 24, Anion Gap 15, Blood Urea Nitrogen 6L, Creatinine 0.5, Estimat Glomerular Filtration Rate , Glucose Level 102, Calcium Level 8.0L Current Medications Medications (Trade) Dose Ordered Sig/Joseline Route PRN Reason Start Time Stop Time Status Last Admin Dose Admin Acetaminophen (Tylenol) 650 mg Q4H PRN ORAL fever 06/13/16 07:00 07/13/16 06:59 06/13/16 09:41 Cefazolin Sodium/ Dextrose (Ancef/D5W) 55 ml @ 110 mls/hr EVERY 8 HOURS IVP 06/16/16 22:00 06/23/16 21:59 06/18/16 21:08 Heparin Sodium (Porcine) (Heparin 5000 units/ml) 5,000 units EVERY 12 HOURS SUBQ 06/13/16 09:00 07/13/16 08:59 06/18/16 21:09 Ibuprofen (Advil) 400 mg Q6H PRN ORAL Mild Pain (Pain Scale 1-3) 06/16/16 23:56 07/16/16 22:44 06/17/16 20:20 Morphine Sulfate (Morphine Sulfate) 2 mg Q4H PRN IVP Moderate Pain (Pain Scale 4-6) 06/13/16 07:00 06/20/16 06:59 06/15/16 16:55 Nitroglycerin 0.4 mg 0.4 mg Q5M PRN SL Prn Chest Pain 06/13/16 07:00 07/13/16 06:59 Ondansetron HCl (Zofran) 4 mg Q6H PRN IVP Nausea & Vomiting 06/13/16 07:00 07/13/16 06:59 Polyethylene Glycol (Miralax) 17 gm DAILYPRN PRN ORAL Constipation 06/13/16 07:00 07/13/16 06:59 Ranitidine HCl 150 mg 150 mg BEDTIME ORAL 06/13/16 21:00 07/13/16 20:59 06/18/16 21:08 Sodium Chloride (Sodium Chloride 1000ml bag) 1,000 ml @ 75 mls/hr [id number] IV 06/13/16 12:00 07/13/16 11:59 06/18/16 13:00 Temazepam (Restoril) 15 mg HSPRN PRN ORAL Insomnia 06/13/16 07:00 06/20/16 06:59 YAAKOV DE DIOS Jun 18, 2016 22:32
[2016-06-19] VITALS: BP 142/72
[2016-06-19 04:00] VITALS: BP 129/68
[2016-06-19] MEDS: ceFAZolin 1gm in D5W 55ml IVP SCH ×2 (05:36→14:17)
[2016-06-19 06:54] LABS: BASOPHILS % (AUTO) 0.8 % (0.0-2.0); EOSINOPHILS % (AUTO) 1.9 % (0.0-3.0); LYMPHOCYTES % (AUTO) 15.5 % (20.0-45.0); MEAN CORPUSCULAR HEMOGLOBIN 29.1 PG (27.0-31.0); MEAN CORPUSCULAR HGB CONC 33.2 G/DL (32.0-36.0); MEAN CORPUSCULAR VOLUME 87 FL (80-99); MEAN PLATELET VOLUME 4.9 FL (6.5-10.1); MONOCYTES % (AUTO) 6.5 % (1.0-10.0); NEUTROPHILS % (AUTO) 75.3 % (45.0-75.0); PLATELET COUNT 515 K/UL (150-450); RED BLOOD COUNT 3.64 M/UL (4.20-5.40); WHITE BLOOD COUNT 9.8 K/UL (4.8-10.8)
[2016-06-19 07:12] LABS: ANION GAP 15 (5-15); CALCIUM 8.2 mg/dL (8.6-10.2); CARBON DIOXIDE 22 mEQ/L (20-30); CHLORIDE 102 mEQ/L (98-107); CREATININE 0.5 mg/dL (0.5-0.9); HEMOLYSIS 1; POTASSIUM 3.6 mEQ/L (3.4-4.9); SODIUM 139 mEQ/L (135-145)
[2016-06-19 08:08] VITALS: BP 121/53
[2016-06-19] MEDS: Heparin 5000 units/ml inj SUBQ SCH (09:00)
--- NOTE | 2016-06-19 10:21 | Infectious Diseases Prog Note ---
Assessment/Plan Assessment/Plan A: The patient is an 80-year-old UTI E Coli US : No obst SP dysuria and hematuria Bacteremia E Coli Sepsis improving Leucocytosis improving A: Continue with cefepime d# 7 / 14 , upon DC will change to oral Keflex to complete the course Monitor CBC Monitor BMP Monitor cxray Monitor cultures Subjective Constitutional: Denies: anorexia, chills, drenching sweats, fatigue, fever, no symptoms, other Allergies: Coded Allergies: No Known Allergies (Unverified , 06/12/16) Objective Vital Signs Last 24 Hour Vital Signs Date Time Temp Pulse Resp B/P Pulse Ox O2 Delivery O2 Flow Rate FiO2 06/19/16 08:08 97.0 60 20 121/53 94 Room Air 06/19/16 08:00 Nasal Cannula 2.0 28 06/19/16 08:00 97 Nasal Cannula 2.0 28 06/19/16 08:00 68 18 Nasal Cannula 2.0 28 06/19/16 04:00 98.4 71 18 129/68 99 Room Air 06/19/16 00:00 98.6 69 20 142/72 99 Room Air 06/18/16 20:00 97.3 69 20 142/69 96 Room Air 06/18/16 19:43 Nasal Cannula 2.0 28 06/18/16 19:42 95 Nasal Cannula 2.0 28 06/18/16 19:41 68 18 Nasal Cannula 2.0 28 06/18/16 16:00 97.0 66 20 137/55 96 Room Air 06/18/16 12:00 97.7 69 18 150/68 96 Room Air Height (Feet): 5 Height (Inches): 0.25 Weight (Pounds): 115 HEENT: atraumatic Respiratory/Chest: normal breath sounds Cardiovascular: regular rhythm Abdomen: no organomegaly Laboratory Tests Test 06/19/16 06:10 White Blood Count 9.8 K/UL (4.8-10.8) Red Blood Count 3.64 M/UL (4.20-5.40) L Hemoglobin 10.6 G/DL (12.0-16.0) L Hematocrit 31.8 % (37.0-47.0) L Mean Corpuscular Volume 87 FL (80-99) Mean Corpuscular Hemoglobin 29.1 PG (27.0-31.0) Mean Corpuscular Hemoglobin Concent 33.2 G/DL (32.0-36.0) Red Cell Distribution Width 13.0 % (11.6-14.8) Platelet Count 515 K/UL (150-450) H Mean Platelet Volume 4.9 FL (6.5-10.1) L Neutrophils (%) (Auto) 75.3 % (45.0-75.0) H Lymphocytes (%) (Auto) 15.5 % (20.0-45.0) L Monocytes (%) (Auto) 6.5 % (1.0-10.0) Eosinophils (%) (Auto) 1.9 % (0.0-3.0) Basophils (%) (Auto) 0.8 % (0.0-2.0) Sodium Level 139 mEQ/L (135-145) Potassium Level 3.6 mEQ/L (3.4-4.9) Chloride Level 102 mEQ/L (98-107) Carbon Dioxide Level 22 mEQ/L (20-30) Anion Gap 15 (5-15) Blood Urea Nitrogen 6 mg/dL (7-23) L Creatinine 0.5 mg/dL (0.5-0.9) Estimat Glomerular Filtration Rate mL/min (>60) Glucose Level 115 mg/dL (74-106) H Calcium Level 8.2 mg/dL (8.6-10.2) L Current Medications Medications (Trade) Dose Ordered Sig/Joseline Route PRN Reason Start Time Stop Time Status Last Admin Dose Admin Acetaminophen (Tylenol) 650 mg Q4H PRN ORAL fever 06/13/16 07:00 07/13/16 06:59 06/13/16 09:41 Cefazolin Sodium/ Dextrose (Ancef/D5W) 55 ml @ 110 mls/hr EVERY 8 HOURS IVP 06/16/16 22:00 06/23/16 21:59 06/19/16 05:36 Heparin Sodium (Porcine) (Heparin 5000 units/ml) 5,000 units EVERY 12 HOURS SUBQ 06/13/16 09:00 07/13/16 08:59 06/19/16 09:00 Ibuprofen (Advil) 400 mg Q6H PRN ORAL Mild Pain (Pain Scale 1-3) 06/16/16 23:56 07/16/16 22:44 06/17/16 20:20 Morphine Sulfate (Morphine Sulfate) 2 mg Q4H PRN IVP Moderate Pain (Pain Scale 4-6) 06/13/16 07:00 06/20/16 06:59 06/15/16 16:55 Nitroglycerin 0.4 mg 0.4 mg Q5M PRN SL Prn Chest Pain 06/13/16 07:00 07/13/16 06:59 Ondansetron HCl (Zofran) 4 mg Q6H PRN IVP Nausea & Vomiting 06/13/16 07:00 07/13/16 06:59 Polyethylene Glycol (Miralax) 17 gm DAILYPRN PRN ORAL Constipation 06/13/16 07:00 07/13/16 06:59 Ranitidine HCl 150 mg 150 mg BEDTIME ORAL 06/13/16 21:00 07/13/16 20:59 06/18/16 21:08 Sodium Chloride (Sodium Chloride 1000ml bag) 1,000 ml @ 75 mls/hr [id number] IV 06/13/16 12:00 07/13/16 11:59 06/19/16 03:31 Temazepam (Restoril) 15 mg HSPRN PRN ORAL Insomnia 06/13/16 07:00 06/20/16 06:59 EVELYN FISCHER M.D. Jun 19, 2016 10:21
[2016-06-19 12:15] VITALS: BP 138/75
--- NOTE | 2016-06-19 16:41 | Cardiology Report ---
APPROVED REPORT EKG Measurement Heart [id number] Normal sinus rhythm Possible Inferior infarct, age undetermined Abnormal ECG
--- NOTE | 2016-06-19 18:59 | Discharge Summary ---
Discharge Summary Hospital Course Date of Admission Jun 12, 2016 at 21:40 Date of Discharge Jun 19, 2016 at 16:20 Admitting Diagnosis sepsis HPI Ernestina Shirley is a 80 year old female who was admitted on Jun 12, 2016 at 21: 40 for Sepsis Hospital Course The patient was seen and examined at bedside and all new and available data was reviewed in the patients chart. Last 24 Hour Vital Signs Date Time Temp Pulse Resp B/P Pulse Ox O2 Delivery O2 Flow Rate FiO2 06/19/16 12:15 98.0 73 19 138/75 99 Nasal Cannula 06/19/16 08:08 97.0 60 20 121/53 94 Room Air 06/19/16 08:00 Nasal Cannula 2.0 28 06/19/16 08:00 97 Nasal Cannula 2.0 28 06/19/16 08:00 68 18 Nasal Cannula 2.0 28 06/19/16 04:00 98.4 71 18 129/68 99 Room Air 06/19/16 00:00 98.6 69 20 142/72 99 Room Air 06/18/16 20:00 97.3 69 20 142/69 96 Room Air 06/18/16 19:43 Nasal Cannula 2.0 28 06/18/16 19:42 95 Nasal Cannula 2.0 28 06/18/16 19:41 68 18 Nasal Cannula 2.0 28 GENERAL: The patient is a well-developed and well-nourished elderly female, in no apparent distress. HEENT: Eyes, pupils are equal and responsive to light and accommodation. Extraocular movements are intact. NECK: Supple without lymphadenopathy. CHEST: Lungs are clear to auscultation bilaterally without wheezes or rales. CARDIOVASCULAR: Regular rhythm and rate. S1 and S2 normal without murmurs, ABDOMEN: Soft, nontender, and nondistended. Positive bowel sounds. EXTREMITIES: Negative for clubbing, cyanosis, or edema. RECTAL: Refused. GENITALIA: Refused. NEUROLOGIC: Cranial nerves II through XII are grossly intact without focal deficits. Motor strength is 5/5 bilaterally. Plan: Discharge home today (Patient was seen earlier today. Signature timestamp does not reflect patient encounter time) Mati Hauser MD Discharge Discharge Disposition Patient was discharged to Home with Home Health(06) Discharge Diagnoses: Mati Hauser MD Jun 19, 2016 18:59
== END 2016-06-19 16:20 | disposition home health service (06) | DRG 871 ==
LOC: EDBD 20:45 → EMR 21:27 → 4W 21:40 → EDBEDREQ 06-13 00:22
DX: A41.51 Sepsis due to Escherichia coli [E. coli] (principal); N17.0 Acute kidney failure with tubular necrosis; E87.1 Hypo-osmolality and hyponatremia; N12 Tubulo-interstitial nephritis, not specified as acute or chronic; E87.6 Hypokalemia; D64.9 Anemia, unspecified
CPT/HCPCS: 36415; 71010; 76775; 80048; 80053; 81003; 82533; 82550; 83605; 83735; 83880; 83930; 83935; 84300; 84439; 84443; 84481; 84484; 84550; 85007; 85025; 85610; 85730; 87040; 87086; 87181; 93005; 94664; 94760; J2405; J8499